=== PATIENT | female | born 2005 | race Caucasian/White ===

== ENCOUNTER 2025-02-11 19:52 | Emergency (ER) | payer OTHER, SELFPAY ==
--- NOTE | ~2025-02-11 | XR_ITS ---
CLINICAL HISTORY: CP 2 view chest x-ray Comparison: None provided Findings: No consolidation, pneumothorax, or pleural effusion. Cardiac silhouette and mediastinal contours are within normal limits. No acute fracture. IMPRESSION: No consolidation. This document has been electronically signed by: Juvenal Isbell MD on 02/11/2025 21:31:29
--- NOTE | 2025-02-11 19:53 | ECG_ITS ---
Test Reason : chest pain Blood Pressure : */* mmHG Vent. Rate : 92 BPM Atrial Rate : 92 BPM P-R Int : 132 ms QRS Dur : 72 ms QT Int : 354 ms P-R-T Axes : 43 44 17 degrees QTcB Int : 437 ms Normal sinus rhythm Normal ECG When compared with ECG of 11-Apr-2017 19:25, No significant changes seen Referred By: Generic ED Physician Electronically Signed By: Matias Dominguez
[2025-02-11 20:03] VITALS: BP 142/93; PULSE 90; RESP 20; TEMP 36.9; O2SAT 100; BMI 34.7
--- NOTE | 2025-02-11 20:05 | ED_ITS ---
HPI - Chest Pain General Chief Complaint: Chest Pain Stated Complaint: Chest pain, lt arm numbness Time Seen by Provider: 02/11/25 22:34 Source: patient Mode of arrival: ambulatory Limitations: no limitations History of Present Illness ED Provider: Dr. Kirsten Haider HPI narrative: patient comes to the emergency room complaining of left-sided chest pain for 2 weeks. Patient states that sometimes she takes naproxen for pain. Patient reports left arm tingling for 24-48 hours. At this time, slightly getting better. Denies any shortness of breath, denies any nausea or vomiting. Denies any trauma, denies any new exercises or heavy lifting. Related Data Allergies Allergy/AdvReac Type Severity Reaction Status Date / Time nut - unspecified (nut) Allergy Severe RASH Verified 02/11/25 20:06 soy (SOY) Allergy Intermediate RASH Verified 02/11/25 20:06 shellfish derived (SHELLFISH Allergy Unknown TESTED Verified 02/11/25 20:06 DERIVED) POSITIVE FRUIT Allergy Intermediate RASH Uncoded 02/11/25 20:06 Review of Systems 2 Review of Systems: Constitutional : No Weight loss, No Fever, No Chills, No Night Sweats, No Fatigue, No Malaise ENT/Mouth : No Hearing loss, No Ear Pain, No Nasal Congestion, No Sinus Pain, No Hoarseness, No sore throat, No Rhinorrhea, No Swallowing Difficulty Eyes: No Eye Pain, No Swelling, No Redness, No Foreign Body, No Discharge, No Vision Changes Cardiovascular : Complaining of chest pain for 2 weeks radiating towards the left arm, No SOB, No Dyspnea on Exertion, No Orthopnea, No Edema, No Palpitations Respiratory : No Cough, No Sputum, No Wheezing, No Smoke Exposure, No Dyspnea Gastrointestinal : No Nausea, No Vomiting, No Diarrhea, No Constipation, No abdominal Pain, No Hematochezia, No Melena Genitourinary : no irregular bleeding, No Dysuria, No Urinary Frequency, No Hematuria, No Urinary Incontinence, No Urgency, No Flank Pain, No Urinary Flow Changes, No Hesitancy Musculoskeletal : No joint pain, No Myalgias, No Joint Swelling Skin : No Skin Lesions, No rash Neuro : No Weakness, No Numbness, No Paresthesias, No Loss of Consciousness, No Dizziness, No Headache Psych : No Anxiety/Panic, No Depression, No SI/HI/AH/VH, No Social Issues, Heme/Lymph: No Bruising, No Bleeding,No Lymphadenopathy Endocrine : No Polyuria, No Polydipsia, No Temperature Intolerance [facility] Social History Social History Advance Directives: No Advance Directives Information Provided: No Physical Exam 2 Vital Signs: Vital Signs: Last Vital Signs Temp 98.4 F 02/11/25 20:03 Pulse 90 02/11/25 20:03 Resp 20 02/11/25 20:03 BP 142/93 H 02/11/25 20:03 Pulse Ox 100 02/11/25 20:03 O2 Del Method Room Air 02/11/25 20:03 BMI result Body Mass Index 34.7 Const: Other: Appearance: Alert. Oriented X3. No acute distress. Eyes: Pupils equal, round and reactive to light. ENT: Pharynx normal. Neck: Normal inspection. Neck supple. No lymph nodes noted. No crepitus CVS: Normal heart rate and rhythm. Pulses normal. Normal S1 and S2. Bedside ultrasound shows good contractility, no pericardial effusion Respiratory: No respiratory distress. Breath sounds normal. No Wheezing. No rales Abdomen: Soft and nontender. No rigidity. No distention. Skin: Skin warm and dry. Normal skin color. Normal skin turgor. Extremities: No lower extremity edema. No Lacerations. No Rash Neuro: Oriented X 3. No motor deficit. No sensory deficit. Moving all extremities. No slurred speech. CN 2 through 12 grossly intact Psych: calm, cooperative, normal affect Course Course Course Narrative: This is an RME: Additional HPI, ROS, PE not included below will be deferred to primary provider. 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 Reports that she has been taking naproxen. Also reporting left arm tingling and numbness. Reports FMHx of cardiac issues - ?cousin had a pacemaker at age 18. No recent travel, surgeries or hospitalizations. Not on OCPs. Plan: Labs, EKG, cxr, further ER eval needed Medical Decision Making Medical Decision Making MDM Narrative: my interpretation of EKG: Normal sinus rhythm, heart rate 92, no ST segment depression or elevation, no T-wave inversion, QTC 437 my interpretation of labs: no significant abnormality in patient's hematology, white blood cell count slightly elevated 11.8, chemistry within normal limits, magnesium 2.9, troponin 2.7, hCG negative. Serology negative chest x-ray does not show any acute abnormality. I discussed with the patient that she may have costochondritis, versus pleurisy, versus musculoskeletal chest pain, cardiac etiology less likely. Differential Diagnosis Differential Diagnoses: The differential diagnosis associated with the presentation includes ( As above) Lab Data MDM Lab Attestation statement: I reviewed the patient's lab results. 02/11/25 20:32 02/11/25 20:32 Labs: Lab Results 02/11/25 02/11/25 Range/Units 20:31 20:32 WBC 11.8 H (4.8-10.8) X10*3/uL RBC 5.18 (4.20-5.50) X10*6/uL Hgb 15.4 (12.0-16.0) g/dl Hct 42.1 (37.0-47.0) % MCV 81.3 (80.0-98.0) fL MCH 29.7 (27.0-33.0) pg MCHC 36.6 H (31.0-35.0) g/dl RDW 12.6 (11.0-16.0) % Plt Count 309 (160-400) X10*3/uL MPV 8.9 L (9.4-12.3) fL Immature Gran % (Auto) 0.3 (0.0-0.4) % Neut % (Auto) 61.5 (45-73) % Lymph % (Auto) 31.0 (20-40) % Wilkes % (Auto) 5.4 (2-11) % Eos % (Auto) 1.4 (0-4) % Baso % (Auto) 0.4 (0-2) % Lymph # (Auto) 3.7 (1.2-4.9) X10*3/uL Wilkes # (Auto) 0.6 (0.1-1.2) X10*3/uL Eos # (Auto) 0.2 (0.0-0.4) X10*3/uL Baso # (Auto) 0.1 (0.0-0.2) X10*3/uL Abs Immat Gran (auto) 0.03 (0.00-0.03) X10*3/uL Absolute Neuts (auto) 7.2 (2.0-8.3) x10*3/uL Absolute Nucleated RBC 0.000 (0.0-0.012) X10*3/uL Nucleated RBC % (auto) 0.0 (0.0-0.2) /100WBC Sodium 140 (135-145) mmol/L Potassium 4.1 (3.3-5.1) mmol/L Chloride 105 (96-108) mmol/L Carbon Dioxide 25 (22-29) mmol/L Anion Gap 14 (12-20) BUN 12 (9-16) mg/dL Creatinine 0.72 (0.5-1.4) mg/dL Estim Creat Clear Calc 146.7 Estimated GFR > 60 Random Glucose 92 (60-115) mg/dL Calcium 9.5 (8.4-10.2) mg/dL Magnesium 2.1 (1.6-2.6) mg/dL Total Bilirubin 0.4 (0.0-1.0) mg/dL Direct Bilirubin 0.1 (0.0-0.5) mg/dL AST 34 H (5-31) U/L ALT 44 H (0-31) U/L Alkaline Phosphatase 53 (39-117) U/L Troponin I High Sens < 2.7 (<3.5-17.0) ng/L Total Protein 7.7 (6.5-8.0) g/dL Albumin 5.1 H (3.5-5.0) g/dL Beta HCG, Quant < 2 mIU/mL Influenza Type A (PCR) NEGATIVE (Negative) Influenza Type B (PCR) NEGATIVE (Negative) RSV RNA Qual (PCR) NEGATIVE (Negative) SARS-CoV-2 RNA (RT-PCR) NEGATIVE (Negative) Independent Interpretation I performed an independent interpretation of an: EKG and Plain X-Ray Radiology Impression Discussion of test interpretation with radiology: I have reviewed the radiologist's reading. Radiologist Impression: No consolidation, pneumothorax, or pleural effusion. Cardiac silhouette and mediastinal contours are within normal limits. No acute fracture. IMPRESSION: No consolidation. Discharge Plan Discharge Clinical Impression: Atypical chest pain Patient Disposition: Home, Self-Care Instructions: Chest Pain (ED), Noncardiac Chest Pain (ED) Print Language: Upper Sorbian
[2025-02-11 20:38] LABS: MANUAL DIFF FLAG NO
[2025-02-11 20:40] LABS: Hematocrit 42.1 % (37.0-47.0); Hemoglobin 15.4 g/dl (12.0-16.0); Imm Gran Abs Auto 0.03 X10*3/uL (0.00-0.03); Imm Gran Pct Auto 0.3 % (0.0-0.4); Lymphocytes Absolute Auto 3.7 X10*3/uL (1.2-4.9); Mean Corpuscular HGB Conc 36.6 g/dl (31.0-35.0); Mean Corpuscular Hemoglobin 29.7 pg (27.0-33.0); Mean Corpuscular Volume 81.3 fL (80.0-98.0); NRBC Abs Auto 0.000 X10*3/uL (0.0-0.012); NRBC Pct Auto 0.0 /100WBC (0.0-0.2); Platelet Count 309 X10*3/uL (160-400); Red Blood Count 5.18 X10*6/uL (4.20-5.50); White Blood Count 11.8 X10*3/uL (4.8-10.8)
[2025-02-11 20:53] LABS: Alanine Aminotransferase 44 U/L (0-31); Albumin Level 5.1 g/dL (3.5-5.0); Alkaline Phosphatase 53 U/L (39-117); Anion Gap 14 (12-20); Aspartate Amino Transferase 34 U/L (5-31); Blood Urea Nitrogen 12 mg/dL (9-16); Calcium 9.5 mg/dL (8.4-10.2); Carbon Dioxide 25 mmol/L (22-29); Chloride 105 mmol/L (96-108); Creatinine Clr Calc Pharmacy 146.7; Estimated Glomerular Filt Rate > 60; Magnesium 2.1 mg/dL (1.6-2.6); Potassium 4.1 mmol/L (3.3-5.1); Sodium 140 mmol/L (135-145); Total Protein 7.7 g/dL (6.5-8.0)
[2025-02-11 21:05] LABS: Troponin-I High Sensitivity < 2.7 ng/L (<3.5-17.0)
[2025-02-11 21:15] LABS: Resp Syncy Virus RNA Qual PCR NEGATIVE (Negative); SARS COV2 PCR INHOUSE NEGATIVE (Negative)
[2025-02-11 22:49] VITALS: BP 124/78; PULSE 82; RESP 16; TEMP 36.5; O2SAT 95
[2025-02-11 23:47] VITALS: PULSE 71
[2025-02-11 23:49] VITALS: BP 124/78; PULSE 82; RESP 16; TEMP 36.5; O2SAT 95
== END 2025-02-11 23:50 | disposition home or self-care (01) ==
PROVIDERS: Physician Assistant Medical; Emergency Provider Emergency Medicine; PCP Family Medicine
DX: R07.89 Other chest pain (principal); Z79.899 Other long term (current) drug therapy; Z03.818 Encounter for observation for suspected exposure to other biological agents ruled out
CPT/HCPCS: 36415; 71046; 80048; 80076; 83735; 84484; 84702; 85025; 87637; 93005; 99283; 99285

== ENCOUNTER → 2025-02-11 19:53 | Outpatient (BNV) | payer OTHER, SELFPAY | PROVIDERS: Emergency Provider Emergency Medicine; PCP Family Medicine; Visit Provider Internal Medicine Cardiovascular Disease | DX: R07.89 Other chest pain (principal) | CPT/HCPCS: 93010 ==

== ENCOUNTER → 2025-02-11 20:08 | Outpatient (BNV) | payer OTHER, SELFPAY | PROVIDERS: Visit Provider Radiology Neuroradiology | DX: R07.9 Chest pain, unspecified (principal) | CPT/HCPCS: 71046 ==

== ENCOUNTER 2025-07-07 15:41 | Outpatient (AMB) | payer OTHER, SELFPAY ==
--- NOTE | 2025-07-07 15:49 | MHC.OFFVIS ---
Intake Visit Reasons: Migranes follow up Allergies nut - unspecified (nut) Allergy (Severe, Verified 02/11/25 20:06) RASH soy (SOY) Allergy (Intermediate, Verified 02/11/25 20:06) RASH shellfish derived (SHELLFISH DERIVED) Allergy (Unknown, Verified 02/11/25 20:06) TESTED POSITIVE FRUIT Allergy (Intermediate, Uncoded 02/11/25 20:06) RASH Medication List - Last Reconciled 07/07/25 by Lesley Hallman MD albuterol sulfate 90 mcg/actuation (Ventolin HFA) 1 puff inhalation TID ibuprofen 400 mg PO Q8H HPI Comments Details: 19 yr woman who is now getting almost daily DOMINGUEZ and taking 4-5 Advil daily. Ears are ringing , R>L. When she was last here she was getting DOMINGUEZ 2-3/ wk for an hour or so mostly in the afternoon. No triggers. Occasionally when sugar is low. Frontal or top of head. No other Sx with it. Gets sensitive to lights and noises. Takes Advil/ Tylenol. FH of migraines. Grades are better and almost made honor roll. She has learning difficulties, short attention and trouble recalling things. Her grades are now C's and sometimes D's in the last 2 years. She is seeing a counselor and therapist. Her evaluation has suggested an attention deficit disorder, as well as learning difficulties and she appears to learn best with visual cues. She also has a bad anxiety disorder and sometimes also feels sad. She has some presyncopal episodes with near faints when she gets up. She feels social anxieties in public and has to be with a self pay specialist. She gets along with her younger siblings, one brother has autism. Had an MRI of brain . She was supposed to get an LP to measure CSF pressure but it was never done. [facility], [facility] Medical History (Updated 07/07/25 @ 15:52 by Lesley Hallman MD) Insomnia Migraine Pseudotumor cerebri Social History Alcohol intake: never Substance Use Type: Marijuana Review of Systems Const Details: ?Sleep:? Difficulty getting to sleepadmits.? Difficulty maintaining sleepadmits.? Urge to move legsdenies.? Teeth grindingdenies.? Shouting or Kicking during sleepdenies.? Abnormal behavior during sleepdenies.? Excessive sleepdenies.? Snoringadmits.? Daytime sleepinessdenies. ???General/Constitutional:? Change in appetitedenies.? Chillsdenies.? Fatigueadmits.? Feverdenies.? Weight gaindenies.? Weight lossdenies. ???Ophthalmologic:? Blurred visiondenies.? Diminished visual acuitydenies. ???ENT:? Stuffinessadmits.? Decreased hearingdenies.? Dry mouthdenies.? Ear paindenies.? Nosebleeddenies.? Ringing in the earsadmits.? Sinus paindenies.? Sore throatdenies.? Swollen glandsdenies. ???Endocrine:? Cold intolerancedenies.? Excessive thirstdenies.? Frequent urinationdenies.? Heat intolerancedenies. ???Respiratory:? Shortness of breathdenies.? Chest paindenies.? Coughdenies. ???Breast:? Breast lumpdenies.? Nipple dischargedenies. ???Cardiovascular:? Chest pain at restdenies.? Chest pain with exertiondenies.? Claudicationdenies.? Dizzinessdenies.? Fluid accumulation in the legsdenies.? Irregular heartbeatdenies.? Palpitationsdenies. ???Gastrointestinal:? Abdominal paindenies.? Constipationdenies.? Diarrheadenies.? Difficulty swallowingdenies.? Heartburndenies.? Nauseadenies.? Rectal bleedingdenies. ???Hematology:? Easy bruisingdenies.? Prolonged bleedingdenies. ???Genitourinary:? Frequent urinationdenies.? Urgencydenies.? Incontinencedenies.? Erectile Dysfunctiondenies. ???Musculoskeletal:? Neck painadmits.? Back paindenies.? Muscle achesadmits.? Painful jointsdenies.? Sciaticadenies.? Weaknessdenies. ???Podiatric:? Difficulty walkingdenies.? Foot numbnessdenies. ???Neurologic:? Difficulty swallowingdenies.? Balance difficultydenies.? Coordinationnormal.? Difficulty speakingdenies.? Dizzinessadmits.? Faintingdenies.? Gait abnormalitydenies.? Headacheadmits.? Loss of strengthdenies.? Loss of use of extremitydenies.? Low back paindenies.? Memory lossadmits.? Seizuresdenies.? Ticsdenies.? Tingling/Numbnessdenies.? Transient loss of visiondenies.? Tremoradmits. ???Psychiatric:? Anxietyadmits.? Auditory/visual hallucinationsadmits.? Delusionsadmits.? Depressed moodadmits.? Stressorsadmits.? Substance abusedenies.? Suicidal thoughtsdenies. Physical Exam Neuro Other: Neurological: Abnormal neurological findings:??blurred nasal disc margins. NO PLUG AND MOLD FINISHER. No papilledema.?Mental Status:??alert and oriented X 3,?Normal attention, orientation, memory and affect.?Cranial Nerves:??Pupils are equal, round and reactive to light. Fundoscopy shows normal disc bilaterally. External occular muscles are intact. Visual madera are full, no ptosis. Face is symmetrical, no facial weakness or droop. Facial sensations are normal. Tongue protrudes in midline. Palate elevates symmetrically. Shoulder shrugging is normal..?Motor Examination:??Normal muscle tone, bulk and strength,?No atrophy or fasciculations,?No drift of the extended upper extremities,?Deep tendon reflexes are 2+?,?Plantars are flexor?.?Straight Leg Raising:??90 degrees.?Sensory Exam:??Normal light touch, temperature, pinprick, vibration and joint-position sensations?,?Rhomberg sign is absent.?Coordination:??no ataxia,?no titubation,?sxxdvx-su-twle, jduw-uhzk-hzzc test and rapid alternating movements were normal.?Gait Exam:??Within normal limits.?Cerebellar Signs:??Pbhzxx-hc-pgyc and bruf-ut-ltav is normal,?no dysdiadochokinesia?.?Extrapyramidal System:??No tremor, rigidity with normal facial expressions,?No bradykinesia, no bradyphrenia. Normal arm swing and posture. No propulsion or retropulsion.?Speech:??Normal,?no dysphasia or dysarthria..? Mini Mental Status Exam: Level of Consciousness:??Alert.?Orientation:??Knows correct year, month, date, day and season,?Knows correct city, county and state. Knows correct location and floor.?Registration:??Able to register 3 objects.?Attention:??Serial 7's performed accurately.?Recall:??Able to recall 3 out of 3 objects.?Language:??Normal spontaneous speech, fluency, repetition,naming, comprehension, reading and writing.?Total Score:??30/30.? General Examination: GENERAL APPEARANCE:??normal,?in no acute distress.?HEAD:??normocephalic,?atraumatic.?EYES:??sclera non-icteric,?conjunctiva clear.?EARS:??auditory canal clear,?tympanic membrane intact, clear.?NOSE:??no lesions.?ORAL CAVITY:??gums normal,?mucosa moist,?no lesions.?THROAT:??clear.?NECK/THYROID:??no cervical lymphadenopathy,?thyroid normal,?neck supple, full range of motion,?no carotid bruit.?SKIN:??no rashes,?no significant birthmarks.?HEART:??S1, S2 normal,?no murmurs.?LUNGS:??clear anteriorly and posteriorly.?CHEST:??no gross rib deformity,?clear to auscultation.?BACK:??normal exam of spine.?EXTREMITIES:??no edema.?PERIPHERAL PULSES:??normal.?PSYCH:??alert, oriented,?cognitive function intact,?cooperative with exam.? Assessment & Plan Assessment & Plan (1) Pseudotumor cerebri: Comment: 06/03/19 EEG- WNL 06/06/[address] scan showed a pineal cyst. Code(s): G93.2 - Benign intracranial hypertension Category: Medical (2) Migraine: Code(s): G43.909 - Migraine, unspecified, not intractable, without status migrainosus Category: Medical (3) ADD (attention deficit disorder): Code(s): F98.8 - Other specified behavioral and emotional disorders with onset usually occurring in childhood and adolescence Category: Medical Plan LP to measure CSF pressure. Start prophylaxis with amitriptyline and Topiramate. Reduce OTC meds to no more than 2 days a week Orders: Orders FL guided lumbar puncture LP Today G93.2 - Benign intracranial hypertension Medications: New amitriptyline 25 mg PO BEDTIME 30 tabs 5RF topiramate XR 50 mg PO DAILY 30 caps 1RF Coding Level of Care Code Est Pt Level 4 (68137) Diagnoses Pseudotumor cerebri G93.2 Migraine G43.909 ADD (attention deficit disorder) F98.8
--- OUTSIDE RECORDS SUMMARY | 2025-07-07 17:08 | XMS_ITS ---
Author Name [facility] Organization Unknown Care Team Organization Name Specialty Phone Email Start Date End Da te [facility]I [email or web address]/11/2022 4 [facility] Ladi Medina Primary Care 06/13/2022 4
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
--- OUTSIDE RECORDS SUMMARY | 2025-07-07 17:08 | XMS_ITS | Clinical Summary ---
Author Organization [facility] Address [address] [place] [address] Care Team Providers Care Sammying Machine Operator Name Role Phone Risa Eaton MD Primary Care Provider [phone] Source Comments Please note that some or all of the patient's information could have additional privacy protections. State laws allow health care providers to render certain types of treatment to minors without parental consent. Please do not assume that this information can be shared solely by obtaining just the consent of the patient's parent/guardian. Please determine if all or part of the patient's care was rendered without parent/guardian involvement. And, if so, obtain the minor's consent prior to disclosure.[facility] Allergies Active Allergy Reactions Criticality Noted Date Comments Cat Dander 01/08/2007 Dog Dander 01/08/2007 Mite-Dermatophagoides Farinae, Standardized Low 06/18/2008 Other reaction(s): Runny Nose/Rhinitis Fruit Extracts 03/29/2020 [place]-contact rxn dizzy, hives, swelling, throat closing [place]-throat closing, throat itching Blueberry-throat itching Grass Pollen-January Grass Standard 01/21/2018 Horse Dander 03/29/2011 Hejwyaic-Fhgipj-Ttdir Extract 01/21/2018 Peanut 08/18/2008 Other reaction(s): Diagnosed by allergy testing Fish Containing Products 03/29/2020 Fish-throat closing Shellfish-hives and itching Seasonal 12/12/2010 Shellfish Containing Products 01/21/2018 Tree Nut 01/21/2018 Medications albuterol (PROVENTIL HFA;VENTOLIN HFA) 90 mcg/actuation inhaler Inhale into the lungs 04/09/2020 Active buPROPion (WELLBUTRIN SR) 100 MG 12 hr tablet Active cetirizine (ZYRTEC) 10 MG tablet Take by mouth 04/09/2020 Active cholecalciferol, vitamin D3, (VITAMIN D3) 50 mcg (2,000 unit) capsule Take by mouth 04/09/2020 Active cloNIDine HCL (CATAPRES) 0.1 MG tablet Active EPINEPHrine (EPIPEN) 0.3 mg/0.3 mL injection Inject into the muscle 04/09/2020 Active etonogestreL (NEXPLANON) 68 mg Inject into the skin 09/16/2019 Active fluticasone furoate (ARNUITY ELLIPTA) 100 mcg/actuation Disk with Device INHALE 1 PUFF BY MOUTH INTO THE LUNGS ONCE DAILY 11/24/2019 Active guanFACINE (TENEX) 1 MG tablet Take by mouth 02/27/2020 Active montelukast (SINGULAIR) 10 mg tablet Take by mouth 04/09/2020 Active QUEtiapine (SEROQUEL) 25 MG tablet Take by mouth 02/27/2020 Active Active Problems No known active problems Family History Medical History Relation Name Comments Arthritis Father Arthritis Mother Irritable bowel syndrome Mother Thyroid disease Mother Arthritis Other maternal Autoimmune disease Other maternal Arthritis Paternal Grandfather Inflammatory bowel disease Neg Hx Lupus Neg Hx Relation Name Status Comments Father Mother Other maternal Paternal Grandfather Social History Tobacco Use Types Packs/Day Years Used Date Smoking Tobacco: Never Smokeless Tobacco: Never Comments:mom smokes outside Other Needs Answer Date Recorded Anything else about your child you'd like help w ith? Not on file 04/20/2023 Share good news about positive changes: Not on f ile 04/20/2023 Comments Unknown Sex and Gender Information Value Date Recorded Sex Assigned at Not on file Legal Sex Female 2:31 PM EDT Gender Identity Not on file Sexual Orientation Not on file Last Filed Vital Signs Vital Sign Reading Time Taken Comments Blood Pressure 106/79 07/08/2020 11:02 AM EST Pulse - - Temperature - - Respiratory Rate - - Oxygen Saturation - - Inhaled Oxygen Concentration - - Weight 89.6 kg (197 lb 8.5 oz) 07/08/2020 11:02 AM EST Height 165.4 cm (5' 5.12 ) 07/08/2020 11:[address] Body Mass Index 32.75 07/08/2020 11:02 AM EST Plan of Treatment Health Maintenance Due Date Last Done Comments DTaP/TDAP/TD VACCINES (1 - Tdap) 2011 ADOLESCENT HIV SCREENING 2017 COVID-19 Vaccine (2023-2 5 season) 2025 INFLUENZA (#1) 2025 NIRSEVIMAB VACCINES UNDER 8 MONTHS Aged Out No longer eligible based on patient's age to complete this topic Insurance [facility] [employer] PLAN Care Teams Sammying Machine Operator Relationship Specialty Start Date End Date Risa Eaton MD [address] [place] [address] PCP - General General Pediatrics 04/15/20
--- OUTSIDE RECORDS SUMMARY | 2025-07-07 17:08 | XMS_ITS | Clinical Summary ---
Author Organization [facility] Address [address] [place] [address] Phone Care Team Providers Care Police Shift Commander Name Role Phone Risa Eaton MD Primary Care Provider [phone] Cheryl Pichardo MD Unavailable [phone] Allergies Active Allergy Reactions Criticality Noted Date Comments Xysuwdhi-Ugzxkv-Sxalm Extract 2017 Grass Pollen-Sharita Grass Standard Peanut 01/21/2018 Tree Nut 01/21/2018 Shellfish Containing Products 2017 Medications cetirizine (ZYRTEC) 10 MG tablet Active cloNIDine HCl (CATAPRES) 0.1 MG tablet Active buPROPion (WELLBUTRIN SR) 100 MG SR 12 hr tablet Active Active Problems No known active problems Social History Tobacco Use Types Packs/Day Years Used Date Smoking Tobacco: Never Assessed Education Answer Date Recorded Are you interested in more education? Not on german e 12/01/2022 Are you concerned about learning? Not on file 12/01/2022 No 12/01/2022 No 12/01/2022 Digital Access Answer Date Recorded No 01/01/2023 No 01/01/2023 No 01/01/2023 Reliable internet access at home? Not on file 01/01/2023 Device with a working camera? Not on file Comments Unknown Sex and Gender Information Value Date Recorded Sex Assigned at Not on file Legal Sex Female 4:46 PM EDT Gender Identity Not on file Sexual Orientation Not on file Last Filed Vital Signs Vital Sign Reading Time Taken Comments Blood Pressure 119/64 04/10/2019 2:30 PM EDT Pulse 84 04/10/2019 2:30 PM EDT Temperature 36.8 C (98.2 F) 04/10/2019 2:30 PM EDT Respiratory Rate 16 04/10/2019 4:30 PM EDT Oxygen Saturation 98% 04/10/2019 2:30 PM EDT Inhaled Oxygen Concentration - - Weight 72.6 kg (160 lb) 04/10/2019 10:48 AM EDT Height 165.1 cm (5' 5 ) 04/10/2019 10:48 AM EDT Body Mass Index 26.63 04/10/2019 10:48 AM EDT Plan of Treatment Not on file Medical Devices Not on file Insurance [employer] A[employer] [facility] ALLANCE ACO Care Teams Police Shift Commander Relationship Specialty Start Date End Date Risa Eaton MD [address] [place] [address] PCP - General Pediatrics 01/21/18 Cheryl Pichardo MD [address] [place] [address] [email or web address] 04/10/19 Additional Source Comments The information contained in this document represents components of the legal health record. It is not the complete legal health record.[facility]
== END 2025-07-07 16:08 | disposition home or self-care (01) ==
LOC: HO.HSM 15:42
PROVIDERS: PCP Family Medicine; Visit Provider Psychiatry & Neurology Neurology
DX: G93.2 Benign intracranial hypertension (principal); G43.909 Migraine, unspecified, not intractable, without status migrainosus; F98.8 Other specified behavioral and emotional disorders with onset usually occurring in childhood and adolescence
CPT/HCPCS: 99214

== ENCOUNTER → 2025-07-07 15:41 | Outpatient (BNVA) | payer OTHER, SELFPAY | PROVIDERS: PCP Family Medicine; Visit Provider Psychiatry & Neurology Neurology | DX: G93.2 Benign intracranial hypertension (principal); G43.909 Migraine, unspecified, not intractable, without status migrainosus; F98.8 Other specified behavioral and emotional disorders with onset usually occurring in childhood and adolescence | CPT/HCPCS: 99212 ==

== ENCOUNTER 2025-07-31 09:18 | Day surgery (SDC) | payer OTHER, SELFPAY ==
--- OUTSIDE RECORDS SUMMARY | 2025-07-10 17:50 | XMS_ITS | Encounter Summary ---
Author Organization [facility] Prior to 06/06/2024 Address [address] [place] [address] Care Team Providers Care Solar Energy Systems Engineer Name Role Phone Risa Eaton MD Primary Care Provider Unavailab le Ladi Medina MD Primary Care Provider Jayson Cadet MD Primary Care Provider + Melvin Rodas MD Unavailable Riya Vega PA-C Unavailable [phone] Garret Clements PA-C Unavailable Nighat Mcgee MD Unavailable [phone] Encounter Details Date Type Department Care Team Description 11/09/2010 Poultry Farm Manager Report Medical Records [address] [place] [address] Rocael Bond MD Social History Tobacco Use Types Packs/Day Years Used Date Smoking Tobacco: Never Smokeless Tobacco: Never Comments:step dad's family Alcohol Use Standard Drinks/Week Comments Not Asked 0 (1 standard drink = 0.6 oz pur e alcohol) Sex Assigned at Date Recorded Not on file Job Start Date Occupation Industry Not on file Not on file Not on file documented as of this encounter Plan of Treatment Not on file documented as of this encounter Visit Diagnoses Not on filedocumented in this encounter Care Teams Solar Energy Systems Engineer Relationship Specialty Start Date End Date Risa Eaton MD PCP - General 06/25/06 11/09/21 Ladi Medina MD [address] [place] [address] PCP - General Pediatrics 11/10/21 08/09/22 Jayson Cadet MD [address] [place] [address] PCP - General Internal Medicine 08/10/22 Melvin Rodas MD [address] [place] [address] Specialist Cardiovascular Disease 01/08/23 Riya Vega PA-C [address] [place] [address] Specialist Neurosurgery 05/12/24 Garret Clements PA-C [address] [address] Specialist Neurosurgery 05/12/24 Nighat Mcgee MD [address] [address] Surgeon Neurosurgery 05/12/24 documented as of this encounter
--- OUTSIDE RECORDS SUMMARY | 2025-07-10 17:50 | XMS_ITS | Encounter Summary ---
Author Organization [facility] Prior to 06/06/2024 Address [address] [place] [address] Care Team Providers Care Assistant Grocery Store Manager Name Role Phone Risa Eaton MD Primary Care Provider Unavailab Ladi Banda MD Primary Care Provider [phone] Jayson Cadet MD Primary Care Provider + Melvin Rodas MD Unavailable Riya Vega PA-C Unavailable Garret Clements PA-C Unavailable Nighat Mcgee MD Unavailable [phone] Reason for Visit * Reason Comments E-prescribe Rx Request Encounter Details Date Type Department Care Team Description 04/06/2016 Refill Pediatrics - [address] [address] Nikki Veras NP E-prescribe Rx Request Social History Tobacco Use Types Packs/Day Years Used Date Smoking Tobacco: Never Smokeless Tobacco: Never Comments:mom smokes outside Alcohol Use Standard Drinks/Week Comments Not Asked 0 (1 standard drink = 0.6 oz pur e alcohol) Sex Assigned at Date Recorded Not on file Job Start Date Occupation Industry Not on file Not on file Not on file documented as of this encounter Miscellaneous Notes * Telephone Encounter - Nikki Hunt NP - 04/06/2016 8:53 AM EDT Done * Telephone Encounter - Emma Gipsonsonnymohini - 04/06/2016 8:39 AM EDT When was patients last PE/WCC? 04/04/16 When is patients next PE/WCC scheduled? W.list Risa Eaton RX REQUEST WHEN MED IS ON THE LIST: All of the medications requested were on the CURRENT MEDS list Did you check the Pharmacy information above?: YES Indicate how soon the patient needs the script: OK FOR NEXT DAY Patient would like script to be: E-PRESCRIBED/FAXED TO PHARMACY Is the doctor here today?: YES Can the message wait until the doctor returns?: YES Has the patient been told that the prescription will not be filled until the end of the day? NO Risa Eaton Payor: [place] / Plan: [place] [employer] [facility] $0 BARTLEY / Product Type: HMO Ikf-gsq-[id number] documented in this encounter Plan of Treatment Not on file documented as of this encounter Visit Diagnoses Not on filedocumented in this encounter Care Teams Assistant Grocery Store Manager Relationship Specialty Start Date End Date Risa Eaton MD PCP - General 06/25/06 11/09/21 Ladi Medina MD [address] [place] [address] PCP - General Pediatrics 11/10/21 08/09/22 Jayson Cadet MD [address] [place] [address] PCP - General Internal Medicine 08/10/22 Melvin Rodas MD [address] [place] [address] Specialist Cardiovascular Disease 01/08/23 Riya Vega PA-C [address] [place] [address] [place] [address] Specialist Neurosurgery 05/12/24 Garret Clements PA-C [address] [facility] [address] [place] [address] Specialist Neurosurgery 05/12/24 Nighat Mcgee MD [address] [address] Surgeon Neurosurgery 05/12/24 documented as of this encounter
--- OUTSIDE RECORDS SUMMARY | 2025-07-10 17:50 | XMS_ITS | Encounter Summary ---
Author Organization [facility] Prior to 06/06/2024 Address [address] [place] [address] Care Team Providers Care Button Machine Operator Name Role Phone Risa Eaton MD Primary Care Provider Unavailab le Ladi Medina MD Primary Care Provider Jayson Cadet MD Primary Care Provider + Melvin Rodas MD Unavailable Riya Vega PA-C Unavailable Garret Clements PA-C Unavailable Nighat Mcgee MD Unavailable [phone] Encounter Details Date Type Department Care Team Description 10/28/2014 Insurance Inspector Report Medical Records [address] [place] [address] Lori Leo Social History Tobacco Use Types Packs/Day Years Used Date Smoking Tobacco: Never Smokeless Tobacco: Never Comments:step dad's /mom smo ke outside Alcohol Use Standard Drinks/Week Comments Not [...] on filedocumented in this encounter Care Teams Button Machine Operator Relationship Specialty Start Date End Date Risa Eaton MD PCP - General 06/25/06 11/09/21 Ladi Medina MD [address] [place] [address] PCP - General Pediatrics 11/10/21 08/09/22 Jayson Cadet MD [address] [place] [address] PCP - General Internal Medicine 08/10/22 Melvin Rodas MD [address] [place] [address] Specialist Cardiovascular Disease 01/08/23 Riya Vega PA-C [address] [place] [address] Specialist Neurosurgery 05/12/24 Garret Clements PA-C [address] [address] Specialist Neurosurgery 05/12/24 Nighat Mcgee MD [address] [address] Surgeon Neurosurgery 05/12/24 documented as of this encounter
--- OUTSIDE RECORDS SUMMARY | 2025-07-10 17:50 | XMS_ITS | Encounter Summary ---
Author Organization [facility] Prior to 06/06/2024 Address [address] [place] [address] Care Team Providers Care Monitor Tech Name Role Phone Risa Eaton MD Primary Care Provider Unavailab Ladi Banda MD Primary Care Provider Jayson Cadet MD Primary Care Provider + Melvin Rodas MD Unavailable Riya Vega PA-C Unavailable [phone] Garret Clements PA-C Unavailable [phone] Nighat Mcgee MD Unavailable [phone] Encounter Details Date Type Department Care Team Description 11/22/2015 Release of Information Medical Records [address] [place] [address] Abstract, Provider Social History Tobacco Use Types Packs/Day Years [...] on filedocumented in this encounter Care Teams Monitor Tech Relationship Specialty Start Date End Date Risa Eaton MD PCP - General 06/25/06 11/09/21 Ladi Medina MD [address] [place] [address] PCP - General Pediatrics 11/10/21 08/09/22 Jayson Cadet MD [address] [place] [address] PCP - General Internal Medicine 08/10/22 Melvin Rodas MD [address] [place] [address] Specialist Cardiovascular Disease 01/08/23 Riya Vega PA-C [address] [place] [address] Specialist Neurosurgery 05/12/24 Garret Clements PA-C [address] [place] [address] Specialist Neurosurgery 05/12/24 Nighat Mcgee MD [address] [address] Surgeon Neurosurgery 05/12/24 documented as of this encounter
--- OUTSIDE RECORDS SUMMARY | 2025-07-10 17:50 | XMS_ITS | Clinical Summary ---
Author Organization [facility] Address [address] [place] [address] Phone Care Team Providers Care Buffet Attendant Name Role Phone Risa Eaton MD Primary Care Provider [phone] Cheryl Pichardo MD Unavailable [phone] Allergies Active Allergy Reactions Criticality Noted Date Comments Wupcwlaq-Sykama-Wmzfa Extract 2017 Grass Pollen-Sharita Grass Standard Peanut [...] file Medical Devices Not on file Insurance [employer] ACO [employer] ACO [facility] ALLANCE ACO Care Teams Buffet Attendant Relationship Specialty Start Date End Date Risa Eaton MD [address] [place] [address] PCP - General Pediatrics 01/21/18 Cheryl Pichardo MD [address] [place] [address] [email or web address] 04/10/19 Additional Source Comments The information contained in this document represents components of the legal health record. It is not the complete legal health record.[facility]
--- OUTSIDE RECORDS SUMMARY | 2025-07-10 17:50 | XMS_ITS | Encounter Summary ---
Author Organization [facility] Prior to 06/06/2024 Address [address] [place] [address] Care Team Providers Care Mmi Teacher Name Role Phone Jayson Cadet MD Primary Care Provider + Melvin Rodas MD Unavailable Riya Vega PA-C Unavailable Garret Clements PA-C Unavailable Nighat Mcgee MD Unavailable [phone] Encounter Details Date Type Department Care Team Description 03/13/2023 Telephone [facility] [address] [place] [address] [phone] Ladi Medina MD [address] [place] [address] [phone] Social History Tobacco Use Types Packs/Day Years Used Date Smoking Tobacco: Never Smokeless Tobacco: Former Snuff Comments:mom smokes outside Alcohol Use Standard Drinks/Week Comments No 0 (1 standard drink = 0.6 oz pur e alcohol) Sex Assigned at Date Recorded Not on file Job Start Date Occupation Industry Not on file Not on file Not on file COVID-19 Exposure Response Date Recorded In the last 10 days, have yo u been in contact with someone who was confirmed or suspected to have Coronavirus/COVID-19? No / Unsure 03/12/2023 1:44 PM EDT documented as of this encounter Plan of Treatment Not on file documented as of this encounter Visit Diagnoses Not on filedocumented in this encounter Care Teams Mmi Teacher Relationship Specialty Start Date End Date Jayson Cadet MD [address] [place] [address] PCP - General Internal Medicine 08/10/22 Melvin Rodas MD [address] [place] [address] Specialist Cardiovascular Disease 01/08/23 Riya Vega PA-C [address] [address] Specialist Neurosurgery 05/12/24 Garret Clements PA-C [address] [address] Specialist Neurosurgery 05/12/24 Nighat Mcgee MD [address] [address] Surgeon Neurosurgery 05/12/24 documented as of this encounter
--- OUTSIDE RECORDS SUMMARY | 2025-07-10 17:50 | XMS_ITS | Encounter Summary ---
Author Organization [facility] Prior to 06/06/2024 Address [address] [place] [address] Care Team Providers Care Plastic Jig And Fixture Builder Name Role Phone Risa Eaton MD Primary Care Provider Unavailab Ladi Banda MD Primary Care Provider [phone] Jayson Cadet MD Primary Care Provider + Melvin Rodas MD Unavailable Riya Vega PA-C Unavailable Garret Clements PA-C Unavailable [phone] Nighat Mcgee MD Unavailable [phone] Encounter Details Date Type Department Care Team Description 03/04/2015 Turbine Engineer Report Medical Records [address] [place] [address] Lori Leo Social History Tobacco Use Types [...] on filedocumented in this encounter Care Teams Plastic Jig And Fixture Builder Relationship Specialty Start Date End Date Risa Eaton MD PCP - General 06/25/06 11/09/21 Ladi Medina MD [address] [place] [address] PCP - General Pediatrics 11/10/21 08/09/22 Jayson Cadet MD [address] [place] [address] PCP - General Internal Medicine 08/10/22 Melvin Rodas MD [address] [place] [address] Specialist Cardiovascular Disease 01/08/23 Riya Vega PA-C [address] [place] [address] Specialist Neurosurgery 05/12/24 Garret Clements PA-C [address] [address] Specialist Neurosurgery 05/12/24 Nighat Mcgee MD [address] [address] Surgeon Neurosurgery 05/12/24 documented as of this encounter
--- OUTSIDE RECORDS SUMMARY | 2025-07-10 17:50 | XMS_ITS | Encounter Summary ---
Author Organization [facility] Prior to 06/06/2024 Address [address] [place] [address] Care Team Providers Care Production Repairer Name Role Phone Risa Eaton MD Primary Care Provider Unavailab le Ladi Medina MD Primary Care Provider [phone] Jayson Cadet MD Primary Care Provider + Melvin Rodas MD Unavailable Riya Vega PA-C Unavailable [phone] Garret Clements PA-C Unavailable Nighat Mcgee MD Unavailable [phone] Encounter Details Date Type Department Care Team Description 01/12/2011 Java Developer Architect Report Medical Records [address] [place] [address] Kelsie Henderson MD Social History Tobacco Use Types Packs/Day [...] on filedocumented in this encounter Care Teams Production Repairer Relationship Specialty Start Date End Date Risa Eaton MD PCP - General 06/25/06 11/09/21 Ladi Medina MD [address] [place] [address] PCP - General Pediatrics 11/10/21 08/09/22 Jayson Cadet MD [address] [place] [address] PCP - General Internal Medicine 08/10/22 Melvin Rodas MD [address] [place] [address] Specialist Cardiovascular Disease 01/08/23 Riya Vega PA-C [address] [place] [address] Specialist Neurosurgery 05/12/24 Garret Clements PA-C [address] [address] Specialist Neurosurgery 05/12/24 Nighat Mcgee MD [address] [address] Surgeon Neurosurgery 05/12/24 documented as of this encounter
--- OUTSIDE RECORDS SUMMARY | 2025-07-10 17:50 | XMS_ITS | Encounter Summary ---
Author Organization [facility] Prior to 06/06/2024 Address [address] [place] [address] Care Team Providers Care Cast Iron Dipper Name Role Phone Ladi Medina MD Primary Care Provider Jayson Cadet MD Primary Care Provider + Melvin Rodas MD Unavailable Riya Vega PA-C Unavailable Garret Clements PA-C Unavailable Nighat Mcgee MD Unavailable [phone] Reason for Visit * Reason Comments E-prescribe Rx Request Encounter Details Date Type Department Care Team Description 05/19/2022 Refill [facility] - [address] [id number] Ladi Medina MD [address] [place] [id number] E-prescribe Rx Request Social History Tobacco Use [...] suspected to have Coronavirus/COVID-19? No / Unsure 04/20/2022 8:59 AM EDT documented as of this encounter Miscellaneous Notes * Telephone Encounter - Ladi Medina MD - 05/19/2022 5:24 PM EDT Refill sent * Telephone Encounter - Heidi McdonnellPBreonnaNBreonna - 05/19/2022 11:38 AM EDT Last filled 04/20/2022 UTD please review and sign * Telephone Encounter - Heidi Johnson - 05/19/2022 11:03 AM EDT When was patients last PE/WCC? 04/2022 When is patients next PE/WCC scheduled? Wait listed Ladi Medina RX REQUEST WHEN MED IS ON THE LIST: All of the medications requested were on the CURRENT MEDS list Did you check the Pharmacy information above?: YES Indicate how soon the patient needs the script: NICOLE Patient would like script to be: E-PRESCRIBED/FAXED TO PHARMACY Is the doctor here today?: YES Can the message wait until the doctor returns?: NO Has the patient been told that the prescription will not be filled until the end of the day? NO Ladi Medina Payor: [facility] FFS / Plan: [facility] / Product Type: MEDICAID RISK documented in this encounter Plan of Treatment Not on file documented as of this encounter Visit Diagnoses Not on filedocumented in this encounter Care Teams Cast Iron Dipper Relationship Specialty Start Date End Date Ladi Medina MD [address] [place] [address] PCP - General Pediatrics 11/10/21 08/09/22 Jayson Cadet MD [address] [place] [address] PCP - General Internal Medicine 08/10/22 Melvin Rodas MD [address] [place] [address] Specialist Cardiovascular Disease 01/08/23 Riya Vega PA-C [address] [address] Specialist Neurosurgery 05/12/24 Garret Clements PA-C [address] [address] Specialist Neurosurgery 05/12/24 Nighat Mcgee MD [address] [address] Surgeon Neurosurgery 05/12/24 documented as of this encounter
--- OUTSIDE RECORDS SUMMARY | 2025-07-10 17:50 | XMS_ITS | Encounter Summary ---
Author Organization [facility] Prior to 06/06/2024 Address [address] [place] [address] Care Team Providers Care Loop Drier Operator Name Role Phone Risa Eaton MD Primary Care Provider Unavailab le Ladi Medina MD Primary Care Provider Jayson Cadet MD Primary Care Provider + Melvin Rodas MD Unavailable Riya Vega PA-C Unavailable Garret Clements PA-C Unavailable [phone] Nighat Mcgee MD Unavailable [phone] Encounter Details Date Type Department Care Team Description 06/07/2015 Rn Charge Report Medical Records [address] [place] [address] Aaron Dugan i Social History Tobacco Use Types Packs/Day Years [...] on filedocumented in this encounter Care Teams Loop Drier Operator Relationship Specialty Start Date End Date Risa Eaton MD PCP - General 06/25/06 11/09/21 Ladi Medina MD [address] [place] [address] PCP - General Pediatrics 11/10/21 08/09/22 Jayson Cadet MD [address] [place] [address] PCP - General Internal Medicine 08/10/22 Melvin Rodas MD [address] [place] [address] Specialist Cardiovascular Disease 01/08/23 Riya Vega PA-C [address] [place] [address] Specialist Neurosurgery 05/12/24 Garret Clements PA-C [address] [address] Specialist Neurosurgery 05/12/24 Nighat Mcgee MD [address] [address] Surgeon Neurosurgery 05/12/24 documented as of this encounter
--- OUTSIDE RECORDS SUMMARY | 2025-07-10 17:50 | XMS_ITS | Encounter Summary ---
Author Organization [facility] Prior to 06/06/2024 Address [address] [place] [address] Care Team Providers Care Credit Risk Analytics Manager Name Role Phone Risa Eaton MD Primary Care Provider Unavailab Ladi Banda MD Primary Care Provider Jayson Cadet MD Primary Care Provider + Melvin Rodas MD Unavailable Riya Vega PA-C Unavailable Garret Clements PA-C Unavailable Nighat Mcgee MD Unavailable [phone] Encounter Details Date Type Department Care Team Description 07/08/2020 SCAN Medical Records [address] [place] [address] Abstract, Provider Social History Tobacco Use Types [...] on file documented as of this encounter Procedures Procedure Name Priority Date/Time Associated Diagnosis Comments OUTSIDE LAB Routine 07/08/2020 documented in this encounter Results * OUTSIDE LAB (07/08/2020) Provider Abstract LAB documented in this encounter Visit Diagnoses Not on filedocumented in this encounter Care Teams Credit Risk Analytics Manager Relationship Specialty Start Date End Date Risa Eaton MD PCP - General 06/25/06 11/09/21 Ladi Medina MD [address] [place] [address] PCP - General Pediatrics 11/10/21 08/09/22 Jayson Cadet MD [address] [place] [address] PCP - General Internal Medicine 08/10/22 Melvin Rodas MD [address] [place] [address] Specialist Cardiovascular Disease 01/08/23 Riya Vega PA-C [address] [address] Specialist Neurosurgery 05/12/24 Garret Clements PA-C [address] [address] Specialist Neurosurgery 05/12/24 Nighat Mcgee MD [address] [address] Surgeon Neurosurgery 05/12/24 documented as of this encounter
--- OUTSIDE RECORDS SUMMARY | 2025-07-10 17:50 | XMS_ITS | Encounter Summary ---
Author Organization [facility] Prior to 06/06/2024 Address [address] [place] [address] Care Team Providers Care Cuprous Chloride Helper Name Role Phone Risa Eaton MD Primary Care Provider Unavailab le Ladi eMdina MD Primary Care Provider Jayson Cadet MD Primary Care Provider + Melvin Rodas MD Unavailable Riya Vega PA-C Unavailable Garret Clements PA-C Unavailable Nighat Mcgee MD Unavailable [phone] Encounter Details Date Type Department Care Team Description 03/21/2011 Periodontal Assistant Report Medical Records [address] [place] [address] Rocael Bond MD Social History Tobacco Use [...] on filedocumented in this encounter Care Teams Cuprous Chloride Helper Relationship Specialty Start Date End Date Risa Eaton MD PCP - General 06/25/06 11/09/21 Ladi Medina MD [address] [place] [address] PCP - General Pediatrics 11/10/21 08/09/22 Jayson Cadet MD [address] [place] [address] PCP - General Internal Medicine 08/10/22 Melvin Rodas MD [address] [place] [address] Specialist Cardiovascular Disease 01/08/23 Riya Vega PA-C [address] [place] [address] Specialist Neurosurgery 05/12/24 Garret Clements PA-C [address] [address] Specialist Neurosurgery 05/12/24 Nighat Mcgee MD [address] [address] Surgeon Neurosurgery 05/12/24 documented as of this encounter
--- OUTSIDE RECORDS SUMMARY | 2025-07-10 17:50 | XMS_ITS | Encounter Summary ---
Author Organization [facility] Prior to 06/06/2024 Address [address] [place] [address] Care Team Providers Care Goat Herder Name Role Phone Jayson Cadet MD Primary Care Provider + Melvin Rodas MD Unavailable Riya Vega PA-C Unavailable Garret Clements PA-C Unavailable Nighat Mcgee MD Unavailable [phone] Encounter Details Date Type Department Care Team Description 03/21/2023 SCAN Medical Records [address] [place] [address] [facility] Social History Tobacco Use Types Packs/Day Years [...] suspected to have Coronavirus/COVID-19? No / Unsure 03/21/2023 9:54 AM EDT documented as of this encounter Plan of Treatment Not on file documented as of this encounter Visit Diagnoses Not on filedocumented in this encounter Care Teams Goat Herder Relationship Specialty Start Date End Date Jayson Cadet MD [address] [place] [address] PCP - General Internal Medicine 08/10/22 Melvin Rodas MD [address] [place] [address] Specialist Cardiovascular Disease 01/08/23 Riya Vega PA-C [address] [address] Specialist Neurosurgery 05/12/24 Garret Clements PA-C [address] [address] Specialist Neurosurgery 05/12/24 Nighat Mcgee MD [address] [address] Surgeon Neurosurgery 05/12/24 documented as of this encounter
--- OUTSIDE RECORDS SUMMARY | 2025-07-10 17:50 | XMS_ITS | Encounter Summary ---
Author Organization [facility] Prior to 06/06/2024 Address [address] [place] [address] Care Team Providers Care Research Assistant Member Name Role Phone Risa Eaton MD Primary Care Provider Unavailab Ladi Banda MD Primary Care Provider [phone] Jayson Cadet MD Primary Care Provider + Melvin Rodas MD Unavailable Riya Vega PA-C Unavailable [phone] Garret Clements PA-C Unavailable [phone] Nighat Mcgee MD Unavailable [phone] Encounter Details Date Type Department Care Team Description 01/13/2015 Drum Sander Offbearer Report Medical Records [address] [place] [address] Lori Leo Social History Tobacco Use Types [...] on filedocumented in this encounter Care Teams Research Assistant Member Relationship Specialty Start Date End Date Risa Eaton MD PCP - General 06/25/06 11/09/21 Ladi Medina MD [address] [place] [address] PCP - General Pediatrics 11/10/21 08/09/22 Jayson Cadet MD [address] [place] [address] PCP - General Internal Medicine 08/10/22 Melvin Rodas MD [address] [place] [address] Specialist Cardiovascular Disease 01/08/23 Riya Vega PA-C [address] [place] [address] Specialist Neurosurgery 05/12/24 Garret Clements PA-C [address] [address] Specialist Neurosurgery 05/12/24 Nighat Mcgee MD [address] [address] Surgeon Neurosurgery 05/12/24 documented as of this encounter
--- OUTSIDE RECORDS SUMMARY | 2025-07-10 17:50 | XMS_ITS | Encounter Summary ---
Author Organization [facility] Prior to 06/06/2024 Address [address] [place] [address] Care Team Providers Care Electric Deicer Inspector Name Role Phone Risa Eaton MD Primary Care Provider Unavailab Ladi Banda MD Primary Care Provider [phone] Jayson Cadet MD Primary Care Provider + Melvin Rodas MD Unavailable Riya Vega PA-C Unavailable [phone] Garret Clements PA-C Unavailable Nighat Mcgee MD Unavailable [phone] Reason for Visit * Reason Comments E-prescribe Rx Request Encounter Details Date Type Department Care Team Description 10/13/2021 Refill Pediatrics - [address] [address] Risa Eaton MD E-prescribe Rx Request Social History Tobacco Use [...] encounter Miscellaneous Notes * Telephone Encounter - Lala Amaya - 10/13/2021 10:43 AM EST When was patients last PE/WCC? 04/19/2021 When is patients next PE/WCC scheduled? Risa Eaton RX REQUEST WHEN MED IS [...] of the day? NO Risa Eaton Payor: [employer] FFS / Plan: [employer] / Product Type: MEDICAID RISK documented in this encounter Plan of Treatment Not on file documented as of this encounter Visit Diagnoses Not on filedocumented in this encounter Care Teams Electric Deicer Inspector Relationship Specialty Start Date End Date Risa Eaton MD PCP - General 06/25/06 11/09/21 Ladi Medina MD [address] [place] [address] PCP - General Pediatrics 11/10/21 08/09/22 Jayson Cadet MD [address] [place] [address] PCP - General Internal Medicine 08/10/22 Melvin Rodas MD [address] [place] [address] Specialist Cardiovascular Disease 01/08/23 Riya Vega PA-C [address] [address] Specialist Neurosurgery 05/12/24 Garret Clements PA-C [address] [address] Specialist Neurosurgery 05/12/24 Nighat Mcgee MD [address] [place] [address] [address] [place] [address] Surgeon Neurosurgery 05/12/24 documented as of this encounter
--- OUTSIDE RECORDS SUMMARY | 2025-07-10 17:50 | XMS_ITS | Encounter Summary ---
Author Organization [facility] Prior to 06/06/2024 Address [address] [place] [address] Care Team Providers Care Dehydrator Tender Name Role Phone Risa Eaton MD Primary Care Provider Unavailab Ladi Banda MD Primary Care Provider Jayson Cadet MD Primary Care Provider + Melvin Rodas MD Unavailable Riya Vega PA-C Unavailable [phone] Garret Clements PA-C Unavailable [phone] Nighat Mcgee MD Unavailable [phone] Encounter Details Date Type Department Care Team Description 09/01/2019 Release of Information Medical Records [address] [place] [address] Abstract, Provider Social History Tobacco Use Types [...] on filedocumented in this encounter Care Teams Dehydrator Tender Relationship Specialty Start Date End Date Risa Eaton MD PCP - General 06/25/06 11/09/21 Ladi Medina MD [address] [place] [address] PCP - General Pediatrics 11/10/21 08/09/22 Jayson Cadet MD [address] [place] [address] PCP - General Internal Medicine 08/10/22 Melvin Rodas MD [address] [place] [address] Specialist Cardiovascular Disease 01/08/23 Riya Vega PA-C [address] [place] [address] Specialist Neurosurgery 05/12/24 Garret Clements PA-C [address] [place] [address] Specialist Neurosurgery 05/12/24 Nighat Mcgee MD [address] [address] Surgeon Neurosurgery 05/12/24 documented as of this encounter
--- OUTSIDE RECORDS SUMMARY | 2025-07-10 17:50 | XMS_ITS | Encounter Summary ---
Author Organization [facility] Prior to 06/06/2024 Address [address] [place] [address] Care Team Providers Care Flat Drier Name Role Phone Risa Eaton MD Primary Care Provider Unavailab Ladi Banda MD Primary Care Provider [phone] Jayson Cadet MD Primary Care Provider + Melvin Rodas MD Unavailable Riya Vega PA-C Unavailable Garret Clements PA-C Unavailable [phone] Nighat Mcgee MD Unavailable [phone] Encounter Details Date Type Department Care Team Description 05/24/2011 [facility] [place] Medical Records [address] [place] [address] Abstract, Provider Social History Tobacco Use Types [...] on filedocumented in this encounter Care Teams Flat Drier Relationship Specialty Start Date End Date Risa Eaton MD PCP - General 06/25/06 11/09/21 Ladi Medina MD [address] [place] [address] PCP - General Pediatrics 11/10/21 08/09/22 Jayson Cadet MD [address] [place] [address] PCP - General Internal Medicine 08/10/22 Melvin Rodas MD [address] [place] [address] Specialist Cardiovascular Disease 01/08/23 Riya Vega PA-C [address] [place] [address] Specialist Neurosurgery 05/12/24 Garret Clements PA-C [address] [address] Specialist Neurosurgery 05/12/24 Nighat Mcgee MD [address] [address] Surgeon Neurosurgery 05/12/24 documented as of this encounter
--- OUTSIDE RECORDS SUMMARY | 2025-07-10 17:50 | XMS_ITS | Encounter Summary ---
Author Organization [facility] Prior to 06/06/2024 Address [address] [place] [address] Care Team Providers Care Shooter Helper Name Role Phone Risa Eaton MD Primary Care Provider Unavailab Ladi Banda MD Primary Care Provider [phone] Jayson Cadet MD Primary Care Provider + Melvin Rodas MD Unavailable Riya Vega PA-C Unavailable [phone] Garret Clements PA-C Unavailable Nighat Mcgee MD Unavailable [phone] Encounter Details Date Type Department Care Team Description 09/11/2016 Wire Inspector Report Medical Records [address] [place] [address] Artur Sanderson Social History Tobacco Use Types Packs/Day Years [...] on filedocumented in this encounter Care Teams Shooter Helper Relationship Specialty Start Date End Date Risa Eaton MD PCP - General 06/25/06 11/09/21 Ladi Medina MD [address] [place] [address] PCP - General Pediatrics 11/10/21 08/09/22 Jayson Cadet MD [address] [place] [address] PCP - General Internal Medicine 08/10/22 Melvin Rodas MD [address] [place] [address] Specialist Cardiovascular Disease 01/08/23 Riya Vega PA-C [address] [place] [address] Specialist Neurosurgery 05/12/24 Garret Clements PA-C [address] [place] [address] Specialist Neurosurgery 05/12/24 Nighat Mcgee MD [address] [address] Surgeon Neurosurgery 05/12/24 documented as of this encounter
--- OUTSIDE RECORDS SUMMARY | 2025-07-10 17:50 | XMS_ITS | Encounter Summary ---
Author Organization [employer] [facility] Prior to 06/06/2024 Address [address] [place] [address] Care Team Providers Care Sales And Service Representative Name Role Phone Risa Eaton MD Primary Care Provider Unavailab Ladi Banda MD Primary Care Provider [phone] Jayson Cadet MD Primary Care Provider + Melvin Rodas MD Unavailable Riya Vega PA-C Unavailable Garret Clements PA-C Unavailable Nighat Mcgee MD Unavailable [phone] Encounter Details Date Type Department Care Team Description 07/08/2020 Embedded Systems Engineer Report Medical Records [address] [place] [address] Abstract, Provider Social History Tobacco Use Types [...] on filedocumented in this encounter Care Teams Sales And Service Representative Relationship Specialty Start Date End Date Risa Eaton MD PCP - General 06/25/06 11/09/21 Ladi Medina MD [address] [place] [address] PCP - General Pediatrics 11/10/21 08/09/22 Jayson Cadet MD [address] [place] [address] PCP - General Internal Medicine 08/10/22 Melvin Rodas MD [address] [place] [address] [id number] Specialist Cardiovascular Disease 01/08/23 Riya Vega PA-C [address] [place] [address] Specialist Neurosurgery 05/12/24 Garret Clements PA-C [address] [place] [address] Specialist Neurosurgery 05/12/24 Nighat Mcgee MD [address] [address] Surgeon Neurosurgery 05/12/24 documented as of this encounter
--- OUTSIDE RECORDS SUMMARY | 2025-07-10 17:50 | XMS_ITS | Encounter Summary ---
Author Organization [facility] Prior to 06/06/2024 Address [address] [place] [address] Care Team Providers Care Scrub Tech Name Role Phone Risa Eaton MD Primary Care Provider Unavailab le Ladi Medina MD Primary Care Provider [phone] Jayson Cadet MD Primary Care Provider + Melvin Rodas MD Unavailable Riya Vega PA-C Unavailable Garret Clements PA-C Unavailable [phone] Nighat Mcgee MD Unavailable [phone] Encounter Details Date Type Department Care Team Description 06/30/2019 Graduate Teaching Associate Report Medical Records [address] [place] [address] Cipriano Hallman MD Social History Tobacco Use Types Packs/Day [...] on filedocumented in this encounter Care Teams Scrub Tech Relationship Specialty Start Date End Date Risa Eaton MD PCP - General 06/25/06 11/09/21 Ladi Medina MD [address] [place] [address] PCP - General Pediatrics 11/10/21 08/09/22 Jayson Cadet MD [address] [place] [address] PCP - General Internal Medicine 08/10/22 Melvin Rodas MD [address] [place] [address] Specialist Cardiovascular Disease 01/08/23 Riya Vega PA-C [address] [place] [address] Specialist Neurosurgery 05/12/24 Garret Clements PA-C [address] [address] Specialist Neurosurgery 05/12/24 Nighat Mcgee MD [address] [address] Surgeon Neurosurgery 05/12/24 documented as of this encounter
--- OUTSIDE RECORDS SUMMARY | 2025-07-10 17:50 | XMS_ITS | Encounter Summary ---
Author Organization [facility] Prior to 06/06/2024 Address [address] [place] [address] Care Team Providers Care Head Porter Baggage Name Role Phone Risa Eaton MD Primary Care Provider Unavailab Ladi Banda MD Primary Care Provider [phone] Jayson Cadet MD Primary Care Provider + Melvin Rodas MD Unavailable Riya Vega PA-C Unavailable Garret Clements PA-C Unavailable [phone] Nighat Mcgee MD Unavailable [phone] Reason for Visit * Reason Comments E-prescribe Rx Request Encounter Details Date Type Department Care Team Description 01/15/2016 Refill Pediatrics - [address] [address] Nikki Veras NP E-prescribe Rx Request Social [...] encounter Miscellaneous Notes * Telephone Encounter - Emma Paz - 01/16/2016 8:55 AM EDT When was patients last PE/WCC? 04/02/15 When is patients next PE/WCC scheduled? 04/04/16 Risa Eaton RX REQUEST WHEN MED IS ON THE LIST: All of the medications requested were on the CURRENT MEDS list Did you check the Pharmacy information above?: YES Indicate how soon the patient needs the script: OK FOR NEXT DAY Patient would like script to be: E-PRESCRIBED/FAXED TO PHARMACY Is the doctor here today?: NO Can the message wait until the doctor returns?: YES Has the patient been told that the prescription will not be filled until the end of the day? NO Risa Eaton Payor: [facility] MEDICA[facility] / Plan: [facility] MEDICAID O [id number] [place] / Product Type: HMO [id number] documented in this encounter Plan of Treatment Not on file documented as of this encounter Visit Diagnoses Not on filedocumented in this encounter Care Teams Head Porter Baggage Relationship Specialty Start Date End Date Risa Eaton MD PCP - General 06/25/06 11/09/21 Ladi Medina MD [address] [place] [address] PCP - General Pediatrics 11/10/21 08/09/22 Jayson Cadet MD [address] [place] [address] PCP - General Internal Medicine 08/10/22 Melvin Rodas MD [address] [place] [address] Specialist Cardiovascular Disease 01/08/23 Riya Vega PA-C [address] [address] Specialist Neurosurgery 05/12/24 Garret Clements PA-C [address] [address] Specialist Neurosurgery 05/12/24 Nighat Mcgee MD [address] [place] [address] Surgeon Neurosurgery 05/12/24 documented as of this encounter
--- OUTSIDE RECORDS SUMMARY | 2025-07-10 17:50 | XMS_ITS | Encounter Summary ---
Author Organization [facility] Prior to 06/06/2024 Address [address] [place] [address] Care Team Providers Care Petrographer Name Role Phone Risa Eaton MD Primary Care Provider Unavailab Ladi Banda MD Primary Care Provider Jayson Cadet MD Primary Care Provider + Melvin Rodas MD Unavailable Riya Vega PA-C Unavailable [phone] Garret Clements PA-C Unavailable Nighat Mcgee MD Unavailable [phone] Encounter Details Date Type Department Care Team Description 03/04/2010 Night Triage Doc Medical Records [address] [place] [address] Abstract, Provider Social History Tobacco Use Types Packs/Day Years Used Date Smoking Tobacco: Former Alcohol Use Standard Drinks/Week Comments Not Asked [...] on filedocumented in this encounter Care Teams Petrographer Relationship Specialty Start Date End Date Risa Eaton MD PCP - General 06/25/06 11/09/21 Ladi Medina MD [address] [place] [id number] PCP - General Pediatrics 11/10/21 08/09/22 Jayson Cadet MD [address] [place] [address] PCP - General Internal Medicine 08/10/22 Melvin Rodas MD [address] [place] [address] Specialist Cardiovascular Disease 01/08/23 Riya Vega PA-C [address] [address] Specialist Neurosurgery 05/12/24 Garret Clements PA-C [address] [address] Specialist Neurosurgery 05/12/24 Nighat Mcgee MD [address] [address] Surgeon Neurosurgery 05/12/24 documented as of this encounter
--- OUTSIDE RECORDS SUMMARY | 2025-07-10 17:51 | XMS_ITS | Encounter Summary ---
Author Organization [facility] Prior to 06/06/2024 Address [address] [place] [address] Care Team Providers Care Multifocal Lens Inspector Name Role Phone Risa Eaton MD Primary Care Provider Unavailab Ladi Banda MD Primary Care Provider [phone] Jayson Cadet MD Primary Care Provider + Melvin Rodas MD Unavailable Riya Vega PA-C Unavailable [phone] Garret Clements PA-C Unavailable [phone] Nighat Mcgee MD Unavailable [phone] Encounter Details Date Type Department Care Team Description 08/18/2013 Senior Bioinformatics Specialist Report Medical Records [address] [place] [address] Artur Sanderson Social History Tobacco Use Types [...] on filedocumented in this encounter Care Teams Multifocal Lens Inspector Relationship Specialty Start Date End Date Risa Eaton MD PCP - General 06/25/06 11/09/21 Ladi Medina MD [address] [place] [address] PCP - General Pediatrics 11/10/21 08/09/22 Jayson Cadet MD [address] [place] [address] PCP - General Internal Medicine 08/10/22 Melvin Rodas MD [address] [place] [address] Specialist Cardiovascular Disease 01/08/23 Riya Vega PA-C [address] [place] [address] Specialist Neurosurgery 05/12/24 Garret Clements PA-C [address] [place] [address] Specialist Neurosurgery 05/12/24 Nighat Mcgee MD [address] [address] Surgeon Neurosurgery 05/12/24 documented as of this encounter
--- OUTSIDE RECORDS SUMMARY | 2025-07-10 17:51 | XMS_ITS | Encounter Summary ---
Author Organization [facility] Prior to 06/06/2024 Address [address] [place] [address] Care Team Providers Care Oil Developer Name Role Phone Risa Eaton MD Primary Care Provider Unavailab Ladi Banda MD Primary Care Provider Jayson Cadet MD Primary Care Provider + Melvin Rodas MD Unavailable Riya Vega PA-C Unavailable [phone] Garret Clements PA-C Unavailable Nighat Mcgee MD Unavailable [phone] Encounter Details Date Type Department Care Team Description 11/30/2020 Program Associate Report Medical Records [address] [place] [address] Danielle Harding Social History Tobacco Use Types Packs/Day Years [...] Exposure Response Date Recorded In the last month, have you been in contact with someone who was confirmed or suspected to have Coronavirus / COVID-19? No / Unsure 11/11/2020 1:36 PM EDT documented as of this encounter Plan of Treatment Not on file documented as of this encounter Visit Diagnoses Not on filedocumented in this encounter Care Teams Oil Developer Relationship Specialty Start Date End Date Risa Eaton MD PCP - General 06/25/06 11/09/21 Ladi Medina MD [address] [place] [address] PCP - General Pediatrics 11/10/21 08/09/22 Jayson Cadet MD [address] [place] [address] PCP - General Internal Medicine 08/10/22 Melvin Rodas MD [address] [place] [address] Specialist Cardiovascular Disease 01/08/23 Riya Vega PA-C [address] [address] Specialist Neurosurgery 05/12/24 Garret Clements PA-C [address] [address] Specialist Neurosurgery 05/12/24 Nighat Mcgee MD [address] [address] Surgeon Neurosurgery 05/12/24 documented as of this encounter
--- OUTSIDE RECORDS SUMMARY | 2025-07-10 17:51 | XMS_ITS | Encounter Summary ---
Author Organization [employer] [facility] Prior to 06/06/2024 Address [address] [place] [address] Care Team Providers Care Soaping Machine Back Tender Name Role Phone Jayson Cadet MD Primary Care Provider + Melvin Rodas MD Unavailable Riya Vega PA-C Unavailable Garret Clements PA-C Unavailable Nighat Mcgee MD Unavailable [phone] Encounter Details Date Type Department Care Team Description 10/05/2022 Hospital Medical Records [address] [place] [address] [facility] Social History Tobacco Use Types Packs/Day Years Used Date Smoking Tobacco: Never Smokeless Tobacco: Former Comments:mom smokes outside Alcohol Use Standard Drinks/Week Comments No 0 (1 standard drink = 0.6 oz pur e alcohol) Sex Assigned at Date Recorded Not on file Job Start Date Occupation Industry Not on file Not on file Not on file COVID-19 Exposure Response Date Recorded In the last 10 days, have sunny u been in contact with someone who was confirmed or suspected to have Coronavirus/COVID-19? No / Unsure 10/04/2022 1:50 PM EST documented as of this encounter Plan of Treatment Not on file documented as of this encounter Procedures Procedure Name Priority Date/Time Associated Diagnosis Comments OUTSIDE EKG Routine 10/05/2022 OUTSIDE PLAIN FILM Routine 10/05/2022 OUTSIDE LAB Routine 10/05/2022 OUTSIDE LAB Routine 10/05/2022 OUTSIDE LAB Routine 10/05/2022 documented in this encounter Results * OUTSIDE PLAIN FILM (10/05/2022) Provider Default RADIOLOGY * OUTSIDE LAB (10/05/2022) Provider Default LAB * OUTSIDE LAB (10/05/2022) Provider Default LAB * OUTSIDE LAB (10/05/2022) Provider Default LAB * OUTSIDE EKG (10/05/2022) Provider Default CARDIOLOGY documented in this encounter Visit Diagnoses Not on filedocumented in this encounter Care Teams Soaping Machine Back Tender Relationship Specialty Start Date End Date Jayson Cadet MD [address] [place] [address] PCP - General Internal Medicine 08/10/22 Melvin Rodas MD [address] [place] [address] Specialist Cardiovascular Disease 01/08/23 Riya Vega PA-C [address] [address] Specialist Neurosurgery 05/12/24 Garret Clements PA-C 175 [facility] [address] [place] [address] Specialist Neurosurgery 05/12/24 Nighat Mcgee MD [address] [address] Surgeon Neurosurgery 05/12/24 documented as of this encounter
--- OUTSIDE RECORDS SUMMARY | 2025-07-10 17:51 | XMS_ITS | Encounter Summary ---
Author Organization [facility] Prior to 06/06/2024 Address [address] [place] [address] Care Team Providers Care Partner Cco Name Role Phone Risa Eaton MD Primary Care Provider Unavailab Ladi Banda MD Primary Care Provider Jayson Cadet MD Primary Care Provider + Melvin Rodas MD Unavailable Riya Vega PA-C Unavailable Garret Clements PA-C Unavailable Nighat Mcgee MD Unavailable [phone] Encounter Details Date Type Department Care Team Description 05/16/2021 [employer] Et[employer] Developer Report Medical Records [address] [place] [address] Cipriano Hallman MD Social History Tobacco Use [...] have Coronavirus / COVID-19? No / Unsure 05/09/2021 2:41 PM EDT documented as of this encounter Plan of Treatment Not on file documented as of this encounter Visit Diagnoses Not on filedocumented in this encounter Care Teams Partner Cco Relationship Specialty Start Date End Date Risa Eaton MD PCP - General 06/25/06 11/09/21 Ladi Medina MD [address] [place] [address] PCP - General Pediatrics 11/10/21 08/09/22 Jayson Cadet MD [address] [place] [address] PCP - General Internal Medicine 08/10/22 Mevlin Rodas MD [address] [place] [address] Specialist Cardiovascular Disease 01/08/23 Riya Vega PA-C [address] [address] Specialist Neurosurgery 05/12/24 Garret Clements PA-C [address] [address] Specialist Neurosurgery 05/12/24 Nighat Mcgee MD [address] [address] Surgeon Neurosurgery 05/12/24 documented as of this encounter
--- OUTSIDE RECORDS SUMMARY | 2025-07-10 17:51 | XMS_ITS | Encounter Summary ---
Author Organization [facility] Prior to 06/06/2024 Address [address] [place] [address] Care Team Providers Care Client Coordinator Name Role Phone Jayson Cadet MD Primary Care Provider + Melvin Rodas MD Unavailable Riya Vega PA-C Unavailable [phone] Garret Clements PA-C Unavailable Nighat Mgcee MD Unavailable [phone] Encounter Details Date Type Department Care Team Description 05/26/2024 Telephone [facility] Medical [facility] Neurosurgery [place] [address] [address] Nighat Mcgee MD [address] [id number] Social History Tobacco Use Types Packs/Day Years [...] encounter Miscellaneous Notes * Telephone Encounter - Garret Clements PA-C - 05/29/2024 4:55 PM EDT I spoke to Ms. Victor. I explained that I had reviewed her labs and that all were back except for the hCG tumor marker. I told her that if that came back negative as well, we would need a repeat scan in 1 year. She was appreciative. * Telephone Encounter - Felecia Perez - 05/28/2024 2:09 PM EDT Returned your call. Vm did not go through. Please try again later. * Telephone Encounter - Garret Clements PA-C - 05/28/2024 2:05 PM EDT I called the patient but got her voicemail and left a message. * Telephone Encounter - Jacklyn Haney - 05/26/2024 4:43 PM EDT Patient looking to get lab results, please call, thank you! documented in this encounter Plan of Treatment Not on file documented as of this encounter Visit Diagnoses Not on filedocumented in this encounter Care Teams Client Coordinator Relationship Specialty Start Date End Date Jayson Cadet MD [address] [place] [address] PCP - General Internal Medicine 08/10/22 Melvin Rodas MD [address] [place] [address] Specialist Cardiovascular Disease 01/08/23 Riya Vega PA-C [address] [address] Specialist Neurosurgery 05/12/24 Garret Clements PA-C [address] [address] Specialist Neurosurgery 05/12/24 Nighat Mcgee MD [address] [address] Surgeon Neurosurgery 05/12/24 documented as of this encounter
--- OUTSIDE RECORDS SUMMARY | 2025-07-10 17:51 | XMS_ITS | Encounter Summary ---
Author Organization [facility] Prior to 06/06/2024 Address [address] [place] [address] Care Team Providers Care Social Media Analyst Name Role Phone Risa Eaton MD Primary Care Provider Unavailab Ladi Banda MD Primary Care Provider Jayson Cadet MD Primary Care Provider + Melvin Rodas MD Unavailable Riya Vega PA-C Unavailable Garret Clements PA-C Unavailable [phone] Nighat Mcgee MD Unavailable [phone] Reason for Visit * Reason Comments E-prescribe Rx Request Encounter Details Date Type Department Care Team Description 04/14/[address] [address] Risa Eaton MD E-prescribe Rx Request Social [...] have Coronavirus / COVID-19? No / Unsure 04/15/2021 10:47 AM EDT documented as of this encounter Miscellaneous Notes * Telephone Encounter - Anabell Lyons M.A. - 04/14/2021 2:40 PM EDT Last alma: 11/11/20 Next alma: 04/19/21 * Telephone Encounter - Carolyn Tom - 04/14/2021 2:19 PM EDT When was patients last PE/WCC? 04/09/2020 When is patients next PE/WCC scheduled? 04/19/2021 Risa Eaton RX REQUEST WHEN MED IS [...] of the day? NO Risa Eaton [facility] / Plan: [facility] / Product Type: MEDICAID RISK documented in this encounter Plan of Treatment Not on file documented as of this encounter Visit Diagnoses Not on filedocumented in this encounter Care Teams Social Media Analyst Relationship Specialty Start Date End Date Risa Eaton MD PCP - General 06/25/06 11/09/21 Ladi Medina MD [address] [place] [address] PCP - General Pediatrics 11/10/21 08/09/22 Jayson Cadet MD [address] [place] [address] PCP - General Internal Medicine 08/10/22 Melvin Rodas MD [address] [place] [address] Specialist Cardiovascular Disease 01/08/23 Riya Vega PA-C [address] [address] Specialist Neurosurgery 05/12/24 Garret Clements PA-C [address] [address] Specialist Neurosurgery 05/12/24 Nighat Mcgee MD [address] [address] Surgeon Neurosurgery 05/12/24 documented as of this encounter
--- OUTSIDE RECORDS SUMMARY | 2025-07-10 17:51 | XMS_ITS | Encounter Summary ---
Author Organization [employer] [facility] Prior to 06/06/2024 Address [address] [place] [address] Care Team Providers Care Assistant Center Director Name Role Phone Risa Eaton MD Primary Care Provider Unavailab Ladi Banda MD Primary Care Provider Jayson Cadet MD Primary Care Provider + Melvin Rodas MD Unavailable Riya Vega PA-C Unavailable Garret Clements PA-C Unavailable Nighat Mcgee MD Unavailable [phone] Encounter Details Date Type Department Care Team Description 01/25/2021 Manufacturing Test Engineer Report Medical Records [address] [place] [address] Danielle Harding Social History Tobacco Use Types [...] filedocumented in this encounter Care Teams Assistant Center Director Relationship Specialty Start Date End Date Risa Eaton MD PCP - General 06/25/06 11/09/21 Ladi Medina MD [address] [place], [place] [phone] PCP - General Pediatrics 11/10/21 08/09/22 Jayson Caedt MD [address] [place] [address] PCP - General Internal Medicine 08/10/22 Melvin Rodas MD [address] [place] [address] Specialist Cardiovascular Disease 01/08/23 Riya Vega PA-C [address] [place] [address] Specialist Neurosurgery 05/12/24 Garret Clements PA-C [address] [place] [address] Specialist Neurosurgery 05/12/24 Nighat Mcgee MD [address] [address] Surgeon Neurosurgery 05/12/24 documented as of this encounter
--- OUTSIDE RECORDS SUMMARY | 2025-07-10 17:51 | XMS_ITS | Encounter Summary ---
Author Organization [employer] [facility] Prior to 06/06/2024 Address [address] [place] [address] Care Team Providers Care Chemotherapist Name Role Phone Jayson Cadet MD Primary Care Provider + Melvin Rodas MD Unavailable Riya Vega PA-C Unavailable [phone] Garret Clements PA-C Unavailable Nighat Mcgee MD Unavailable [phone] Encounter Details Date Type Department Care Team Description 01/26/2023 SCAN Medical Records [address] [place] [address] [facility] Social History Tobacco Use Types Packs/Day Years [...] suspected to have Coronavirus/COVID-19? No / Unsure 12/27/2022 8:43 AM EDT documented as of this encounter Plan of Treatment Not on file documented as of this encounter Visit Diagnoses Not on filedocumented in this encounter Care Teams Chemotherapist Relationship Specialty Start Date End Date Jayson Cadet MD [address] [place] [address] PCP - General Internal Medicine 08/10/22 Melvin Rodas MD [address] [place] [address] Specialist Cardiovascular Disease 01/08/23 Riya Vega PA-C [address] [address] Specialist Neurosurgery 05/12/24 Garret Clements PA-C [address] [address] Specialist Neurosurgery 05/12/24 Nighat Mcgee MD [address] [address] Surgeon Neurosurgery 05/12/24 documented as of this encounter
--- OUTSIDE RECORDS SUMMARY | 2025-07-10 17:51 | XMS_ITS | Encounter Summary ---
Author Organization [employer] [facility] Prior to 06/06/2024 Address [address] [place] [address] Care Team Providers Care Wrestling Coach Name Role Phone Risa Eaton MD Primary Care Provider Unavailab Ladi Banda MD Primary Care Provider Jayson Cadet MD Primary Care Provider + Melvin Rodas MD Unavailable Riya Vega PA-C Unavailable [phone] Garret Clements PA-C Unavailable Nighat Mcgee MD Unavailable [phone] Encounter Details Date Type Department Care Team Description 07/15/2014 Test Man Report Medical Records [address] [place] [address] Artur Sanderson Social History Tobacco Use Types [...] on filedocumented in this encounter Care Teams Wrestling Coach Relationship Specialty Start Date End Date Risa Eaton MD PCP - General 06/25/06 11/09/21 Ladi Medina MD [address] [place] [address] PCP - General Pediatrics 11/10/21 08/09/22 Jayson Cadet MD [address] [place] [address] PCP - General Internal Medicine 08/10/22 Melvin Rodas MD [address] [place] [address] Specialist Cardiovascular Disease 01/08/23 Riya Vega PA-C [address] [place] [address] Specialist Neurosurgery 05/12/24 Garret Clements PA-C [address] [place] [address] Specialist Neurosurgery 05/12/24 Nighat Mcgee MD [address] [address] Surgeon Neurosurgery 05/12/24 documented as of this encounter
--- OUTSIDE RECORDS SUMMARY | 2025-07-10 17:51 | XMS_ITS | Clinical Summary ---
Author Organization [facility] Address [address] [place] [address] Care Team Providers Care Wax Cutter Name Role Phone Risa Eaton MD Primary Care Provider [phone] Source Comments Please note that some or [...] so, obtain the minor's consent prior to disclosure.[facility] Allergies Active Allergy Reactions Criticality Noted Date Comments Cat Dander 01/08/2007 Dog Dander 01/08/2007 Mite-Dermatophagoides Farinae, Standardized Low 06/18/2008 Other reaction(s): Runny Nose/Rhinitis Fruit Extracts 03/29/2020 [place]-contact rxn dizzy, hives, swelling, throat closing [place]-throat closing, throat itching Blueberry-throat itching Grass Pollen-January Grass Standard 01/21/2018 Horse Dander 03/29/2011 Nkngkedo-Lkdfpy-Srnlb Extract 01/21/2018 Peanut 08/18/2008 Other reaction(s): Diagnosed [...] patient's age to complete this topic Insurance [facility] [employer] Care Teams Wax Cutter Relationship Specialty Start Date End Date Risa Eaton MD [address] [place] [address] PCP - General General Pediatrics 04/15/20
--- OUTSIDE RECORDS SUMMARY | 2025-07-10 17:51 | XMS_ITS | Encounter Summary ---
Author Organization [facility] [facility] Prior to 06/06/2024 Address [address] [place] [address] Care Team Providers Care Railroad Car Cleaning Supervisor Name Role Phone Risa Eaton MD Primary Care Provider Unavailab Ladi Banda MD Primary Care Provider Jayson Cadet MD Primary Care Provider + Melvin Rodas MD Unavailable Riya Vega PA-C Unavailable [phone] Garret Clements PA-C Unavailable Nighat Mcgee MD Unavailable [phone] Reason for Visit * Reason Comments E-prescribe Rx Request Encounter Details Date Type Department Care Team Description 12/07/2017 Refill Pediatrics - [address] [address] Risa Eaton MD E-prescribe Rx Request Social History Tobacco Use Types Packs/Day Years Used Date Smoking Tobacco: Never Smokeless Tobacco: Never Comments:mom quit smoking Alcohol Use Standard Drinks/Week Comments Not Asked 0 (1 standard drink = 0.6 oz pur e alcohol) Sex Assigned at Date Recorded Not on file Job Start Date Occupation Industry Not on file Not on file Not on file documented as of this encounter Miscellaneous Notes * Telephone Encounter - Risa Eaton MD - 12/07/2017 4:29 PM EDT Please book [facility] * Telephone Encounter - Gisel Ruiz - 12/07/2017 3:40 PM EDT When was patients last PE/WCC? 04/05/17 When is patients next PE/WCC scheduled? Waitlisted Risa Eaton RX REQUEST WHEN MED IS [...] of the day? NO Risa Eaton Payor: [employer] FFS / Plan: [facility] / Product Type: MEDICAID RISK documented in this encounter Plan of Treatment Not on file documented as of this encounter Visit Diagnoses Not on filedocumented in this encounter Care Teams Railroad Car Cleaning Supervisor Relationship Specialty Start Date End Date Risa Eaton MD PCP - General 06/25/06 11/09/21 Ladi Medina MD [address] [place] [address] PCP - General Pediatrics 11/10/21 08/09/22 Jayson Cadet MD [address] [place] [address] PCP - General Internal Medicine 08/10/22 Melvin Rodas MD [address] [place] [address] Specialist Cardiovascular Disease 01/08/23 Riya Vega PA-C [address] [place] [address] Specialist Neurosurgery 05/12/24 Garret Clements PA-C 175 [facility] [address] [place] [address] Specialist Neurosurgery 05/12/24 Nighat Mcgee MD [address] [address] Surgeon Neurosurgery 05/12/24 documented as of this encounter
--- OUTSIDE RECORDS SUMMARY | 2025-07-10 17:51 | XMS_ITS | Encounter Summary ---
Author Organization [employer] [facility] Prior to 06/06/2024 Address [address] [place] [address] Care Team Providers Care Marriage Therapist Name Role Phone Risa Eaton MD Primary Care Provider Unavailab Ladi Banda MD Primary Care Provider Jayson Cadet MD Primary Care Provider + Melvin Rodas MD Unavailable Riya Vega PA-C Unavailable Garret Clements PA-C Unavailable Nighat Mcgee MD Unavailable [phone] Encounter Details Date Type Department Care Team Description 2004 Property Developer Report Medical Records [address] [place] [address] Cheryl Pichardo Social History Tobacco Use Types Packs/Day Years Used Date Smoking Tobacco: Never Assessed Sex Assigned at Date Recorded Not on file Job Start Date Occupation Industry Not on file Not on file Not on file documented as of this encounter Plan of Treatment Not on file documented as of this encounter Visit Diagnoses Not on filedocumented in this encounter Care Teams Marriage Therapist Relationship Specialty Start Date End Date Risa Eaton MD PCP - General 06/25/06 11/09/21 Ladi Median MD [address] [place] [address] PCP - General Pediatrics 11/10/21 08/09/22 Jayson Cadet MD [address] [place] [address] PCP - General Internal Medicine 08/10/22 Melvin Rodas MD [address] [place] [address] Specialist Cardiovascular Disease 01/08/23 Riya Vega PA-C [address] [address] Specialist Neurosurgery 05/12/24 Garret Clements PA-C [address] [address] Specialist Neurosurgery 05/12/24 Nighat Mcgee MD [address] [address] Surgeon Neurosurgery 05/12/24 documented as of this encounter
--- OUTSIDE RECORDS SUMMARY | 2025-07-10 17:51 | XMS_ITS | Encounter Summary ---
Author Organization [facility] Prior to 06/06/2024 Address [address] [place] [address] Care Team Providers Care Maintenance Construction Helper Name Role Phone Jayson Cadet MD Primary Care Provider + Melvin Rodas MD Unavailable Riya Vega PA-C Unavailable [phone] Garret Clements PA-C Unavailable Nighat Mcgee MD Unavailable [phone] Encounter Details Date Type Department Care Team Description 05/13/2024 [facility] Medical [facility] Neurosurgery [place] [address] [address] Nighat Mcgee MD [address] [id number] Social History Tobacco Use Types Packs/Day Years [...] on filedocumented in this encounter Care Teams Maintenance Construction Helper Relationship Specialty Start Date End Date Jayson Cadet MD [address] [place] [address] PCP - General Internal Medicine 08/10/22 Melvin Rodas MD [address] [place] [address] Specialist Cardiovascular Disease 01/08/23 Riya Vega PA-C [address] [address] Specialist Neurosurgery 05/12/24 Garret Clements PA-C [address] [address] Specialist Neurosurgery 05/12/24 Nighat Mcgee MD [address] [address] Surgeon Neurosurgery 05/12/24 documented as of this encounter
--- OUTSIDE RECORDS SUMMARY | 2025-07-10 17:51 | XMS_ITS | Encounter Summary ---
Author Organization [facility] Prior to 06/06/2024 Address [address] [place] [address] Care Team Providers Care Shot Packer Name Role Phone Risa Eaton MD Primary Care Provider Unavailab Ladi Medina MD Primary Care Provider [phone] Jayson Cadet MD Primary Care Provider + Melvin Rodas MD Unavailable Riya Vega PA-C Unavailable Garret Clements PA-C Unavailable [phone] Nighat Mcgee MD Unavailable [phone] Encounter Details Date Type Department Care Team Description 04/04/2021 Telephone [facility] - [address] [address] Risa Eaton MD Social History Tobacco Use Types Packs/Day [...] on filedocumented in this encounter Care Teams Shot Packer Relationship Specialty Start Date End Date Risa Eaton MD PCP - General 06/25/06 11/09/21 Ladi Medina MD [address] [place] [address] PCP - General Pediatrics 11/10/21 08/09/22 Jayson Cadet MD [address] [place] [address] PCP - General Internal Medicine 08/10/22 Melvin Rodas MD [address] [place] [address] Specialist Cardiovascular Disease 01/08/23 Riya Vega PA-C [address] [place] [address] Specialist Neurosurgery 05/12/24 Garret Clements PA-C [address] [address] Specialist Neurosurgery 05/12/24 Nighat Mcgee MD [address] [address] Surgeon Neurosurgery 05/12/24 documented as of this encounter
--- OUTSIDE RECORDS SUMMARY | 2025-07-10 17:51 | XMS_ITS | Encounter Summary ---
Author Organization [facility] Prior to 06/06/2024 Address [address] [place] [address] Care Team Providers Care Launch Operator Name Role Phone Jayson Cadet MD Primary Care Provider + Melvin Rodas MD Unavailable Riya Vega PA-C Unavailable Garret Clements PA-C Unavailable Nighat Mcgee MD Unavailable [phone] Encounter Details Date Type Department Care Team Description 08/11/2022 Release of Information Medical Records [address] [place] [id number] Abstract, Provider Social History Tobacco Use Types [...] suspected to have Coronavirus/COVID-19? No / Unsure 08/11/2022 8:14 AM EST documented as of this encounter Plan of Treatment Not on file documented as of this encounter Visit Diagnoses Not on filedocumented in this encounter Care Teams Launch Operator Relationship Specialty Start Date End Date Jayson Cadet MD [address] [place] [address] PCP - General Internal Medicine 08/10/22 Melvin Rodas MD [address] [place] [phone] Specialist Cardiovascular Disease 01/08/23 Riya Vega PA-C [address] [address] Specialist Neurosurgery 05/12/24 Garret Clements PA-C [address] [address] Specialist Neurosurgery 05/12/24 Nighat Mcgee MD [address] [address] Surgeon Neurosurgery 05/12/24 documented as of this encounter
--- OUTSIDE RECORDS SUMMARY | 2025-07-10 17:51 | XMS_ITS | Clinical Summary ---
Author Organization [address] Address [address] [place] [phone] Phone Care Team Providers Care Core Worker Name Role Phone Jayson Cadet MD Primary Care Pr ovider Allergies Active Allergy Reactions Criticality Noted Date Comments Cat Dander 01/08/2007 Dog Dander 01/08/2007 Fish Oil 03/29/2020 Fish-throat closing Shellfish-hives and itching Fruit Extracts 03/29/2020 Gates-contact rxn dizzy, hives, swelling, throat closing Center-throat closing, throat itching Blueberry-throat itching Gates-contact rxn dizzy, hives, swelling, throat closing Blueberry-throat itching Grass Pollen-Sharita Grass Standard 01/21/2018 Horse Dander 03/29/2011 House Dust Runny nose Low 06/18/2008 Iodinated Contrast Media 06/19/2023 Latex Rash 05/13/2025 Qulajfcj-Mblhnm-Yurkz Extract 01/21/2018 Mite-Dermatophagoides Farinae, Standardized Low 06/18/2008 Other reaction(s): Runny Nose/Rhinitis Nut - Unspecified 08/18/2008 Other Reaction(s): Diagnosed by allergy testing Gates (Prunus Persica) Anaphylaxis High 05/12/2024 Peanut 08/18/2008 [...] cyst 04/24/2024 Overview (06/05/2024): CT head 04/13/24 [facility] ER MRI 05/10/24: follow-up MRI recommended 6 [...] top of her head. She saw her thermal cutter hand and exam was normal. She reports dizziness [...] Assessment & Plan: 04/27 - followed with THEOLOGY TEACHER. Underwent multiple US, she was told not to worry about them. Does not have any follow up with THEOLOGY TEACHER at this time. Chronic midline thoracic back [...] pain 04/11/2019 Overview (06/05/2024): 04/24: seen at [facility], nl cxr, ekg, nl labs Costochondritis 11/01/2018 Overview (06/05/2024): 10/28/18: seen by [facility]. EKg normal. Motrin. Chest pain likely due to anxiety 04/24: chest pain: seen at [facility]. Nl CXR, EKG, labs Acne vulgaris 06/26/2017 Adverse reaction to SSRI antidepressant drug 02/2017 Overview (06/05/2024): Prozac, heart racing diarrhea, seen at [facility] 03/23: nl EKg at [facility] Migraine 04/05/2017 Overview (06/05/2024): 05/24: seen by [...] is getting services 03/27/15: nl hearing [facility] 04/26: has iep Last Assessment & Plan: Assessment:unchanged Plan:has 504 plan reading help Low vision, both eyes 03/29/2012 Overview (06/05/2024): 10/17: seen by Dr. Arnold, vision. F/u 6 months 03/19: does need glasses 03/21: seen every 6 months 02/22: new glasses [facility] Last Assessment & Plan: Assessment:worsening Plan:has rx for glasses Allergic rhinitis 12/04/2006 Overview (06/05/2024): Seen by Dr. Malone, [facility] 01/14. Flonase spray. Will do allergy testing Has epi joe pen RAST testing 2009, dog, cats, pine nuts etc 01/14 allergy testing: tree nuts, soy borderline to peanuts. Dust, trees, ragweed, Gambian plantain, grass, cat dog horse Started immunotherapy [...] 5:00 PM EST Office Visit Adult Medicine [address] [phone] Brina Dong PA Other migraine without status migrainosus, not intractable (Primary Dx); Pineal gland cyst; Leukocytosis, unspecified type; Vitamin D deficiency 05/26/2025 2:30 PM EDT Clinical Support [facility] Surgery [address] [address] Visit for suture removal (Primary Dx) 05/13/2025 3:30 PM EDT Procedure visit [address] [phone] Janes Brock, DO Lipoma of buttock (Primary Dx) 04/29/[address] [phone] Janes Brock, DO 04/14/2025 2:45 PM EDT Consult [address] [phone] Janes Brock, DO Skin lesion from Last 3 Months Immunizations Immunization Administration Dates Next Due DTaP (Infanrix) 6wks to less than 7yo ,01/31/2006,02/01/2005,12/02,2004 RWaN-ZAA-ZDR (Pentacel) 2mo to less than 5yo 08/03/2005,02/01/2005,2004,10/03 [...] Comments OTHER SURGICAL HISTORY 01/10/2021 Bilateral PROCEDURE: CT RPR 1ST INGUN HRNA AGE 4 YRS/> REDUCIBLE; COMMENT: Dr. Harding OTHER SURGICAL HISTORY Bilateral PROCEDURE: CT EXCISION NAIL MATRIX PERMANENT REMOVAL; COMMENT: Lateral [...] scan colonoscopy if sx recur. Enrolled in [employer] program. 12/18: no subsequent rectal bleeding. If [...] COMMENT: 09/20: seen at Dr. Leo's [employer] program 10/18: child gained 1.8 pounds in a month. No goals or interests. Did not participate in visit. Consider counseling 12/18: Gained 1 kg, encouraged increased activity Dysthymia 04/02/2014 DX:Dysthymia; CO MMENT: 03/20 - not currently in counseling - Right forearm injury 01/22/2018 DX:Right fo rearm injury; COMMENT: 01/21: seen at [facility] ER. Negative xray Mononucleosis 10/22/2017 DX:Mononucleosis ; [...] COMMENT: Finger tips. Not painful. Seen by center punch operator Chest pain 04/11/2019 DX:Chest pain; C OMMENT: 04/24: seen at [facility], nl cxr, ekg, nl labs Family history of [...] age 37 Brother Father Alive 01/07/1980 Virgilio ael Maternal Grandfather Maternal Grandmother Mother Alive 12/31/1983 [...] 5:00 PM EST Office Visit Adult Medicine [address] [phone] Brina Dong PA [address] [place] [address] Health Maintenance Due Date Last Done Comments Meningococcal B Vaccine (1 of 2 - Standard) 2020 Depression Screening 08/06/2024 04/24/2024 COVID-19 Vaccine (1 - season) 2025 Influenza Vaccine (#1) 2025 10/11/2009 [...] * SUTURE REMOVAL (05/26/2025 2:23 PM EDT) Saida Schneider MA - 05/26/2025 2:23 PM EDT Saida [...] the signs to look out for infections. 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 Buttock, Right, [...] two pieces. TS 05/15/2025 12:32 PM EDT [facility] Disclaimer Unless otherwise specified, all tissue is 10% NB formalin fixed and paraffin embedded. 05/15/2025 12:32 PM EDT [facility] Tissue Structure of right buttock / Unknown Non-blood Collection / Unknown 05/13/2025 3:30 PM EDT 05/13/2025 3:34 PM EDT Janes Brock DO LAB PATHOLOGY ORDERABLES Final Result [facility] [address] [place] [address], [place] [phone] * Hepatitis C antibody (03/27/2025 12:20 PM EDT) Hepatitis C Antibody Negative Negative LAB CHEMISTRY METHOD 03/27/2025 4:39 PM EDT [facility] Blood Venous blood specimen / Unknown Venipuncture / Unknown 03/27/2025 12:20 PM EDT 03/27/2025 12:20 PM EDT us Brina LOWE LAB BLOOD ORDERABLES Final Re sult [facility] [address] [place] [address], [place] [phone] * HIV 1,2 antibody, p24 antigen with reflex to differentiation (03/27/2025 12:20 PM EDT) [facility] HIV Combo AB/AG Negative Negative LAB CHEMISTRY METHOD 03/27/2025 4:40 PM EDT [facility] Blood Venous blood specimen / Unknown Venipuncture / Unknown 03/27/2025 12:20 PM EDT 03/27/2025 12:20 PM EDT [facility] - 03/27/2025 4:40 PM EDT This assay is a 4th generation assay allowing for earlier detection of HIV infection by detecting the presence of the HIV-1 p24 antigen as well as the traditional antibodies to HIV type 1 (including group O) and type 2. Use of a 4th generation assay is the current CDC recommendation for HIV screening. us Brina LOWE LAB BLOOD ORDERABLES Final Re sult [facility] [address] [place] [address], [place] [phone] * Lipid panel with reflex to direct LDL (03/27/2025 12:20 PM EDT) [facility] Cholesterol 106 0 - 200 mg/dL LAB CHEMISTRY METHOD 03/27/2025 4:02 PM EDT [facility] Triglycerides 111 0 - 150 mg/dL LAB CHEMISTRY METHOD 03/27/2025 4:02 PM EDT [facility] HDL 44 >=40 mg/dL LAB CHEMISTRY METHOD 03/27/2025 4:02 PM EDT [facility] LDL Calculated 40 0 - 100 mg/dL LAB CHEMISTRY METHOD 03/27/2025 4:02 PM EDT [facility] Comment:Estimated LDL Calcul ated using equation: Total cholesterol - HDL cholesterol - (Triglycerides/5) VLDL Cholesterol Eric 22.2 mg/dL LAB CHEMISTRY METHOD 03/27/2025 4:02 PM EDT [facility] Non HDL Chol. (LDL+VLDL) 62 <145 mg/dL LAB CHEMISTRY METHOD 03/27/2025 4:02 PM EDT [facility] Chol/HDL Ratio 2.4 0.0 - 4.4 LAB CHEMISTRY METHOD 03/27/2025 4:02 PM EDT [facility] Blood Venous blood specimen / Unknown Venipuncture / Unknown 03/27/2025 12:20 PM EDT 03/27/2025 12:20 PM EDT Brina LOWE LAB BLOOD ORDERABLES Final Re sult [facility] [address] [place] [address], [place] [phone] * Chlamydia trachomatis and Neisseria gonorrhoeae molecular study (03/27/2025 12:20 PM EDT) Pathologist [facility] Neisseria gonorrhoeae PCR Negative Negative LAB MOLECULAR DIAGNOSTICS METHOD 03/27/2025 4:39 PM EDT [facility] Chlamydia trachomatis PCR Negative Negative LAB MOLECULAR DIAGNOSTICS METHOD 03/27/2025 4:39 PM EDT [facility] Urine First stream urine specimen / Unknown Non-blood Collection / Unknown 03/27/2025 12:20 PM EDT 03/27/2025 12:20 PM EDT Brina LOWE LAB MICROBIOLOGY - GENERAL OR DERABLES Final Result [facility] [address] [place] [address], [place] [phone] * Depression Screening (04/24/2024) Pathologist [facility] Depression Screening Abstracted Historical Provider HEALTH MAINTENANCE Final Result from Last 3 Months or Most Recently Relevant to Health Maintenance Insurance [facility] Care Teams Core Worker Relationship Specialty Start Date End Date Jayson Cadet MD [address] [place] [phone] PCP - General 08/10/22
--- OUTSIDE RECORDS SUMMARY | 2025-07-10 17:51 | XMS_ITS | Encounter Summary ---
Author Organization [employer] [facility] Prior to 06/06/2024 Address [address] [place] [address] Care Team Providers Care Quarry Extraction Worker Name Role Phone Risa Eaton MD Primary Care Provider Unavailab Ladi Banda MD Primary Care Provider Jayson Cadet MD Primary Care Provider + Melvin Rodas MD Unavailable Riya Vega PA-C Unavailable Garret Clements PA-C Unavailable Nighat Mcgee MD Unavailable [phone] Encounter Details Date Type Department Care Team Description 04/08/2014 Wireworker Report Medical Records [address] [place] [id number] Artur Sanderson Social History Tobacco Use Types [...] on filedocumented in this encounter Care Teams Quarry Extraction Worker Relationship Specialty Start Date End Date Risa Eaton MD PCP - General 06/25/06 11/09/21 Ladi Medina MD [address] [place] [address] PCP - General Pediatrics 11/10/21 08/09/22 Jayson Cadet MD [address] [place] [address] PCP - General Internal Medicine 08/10/22 Melvin Rodas MD [address] [place] [address] Specialist Cardiovascular Disease 01/08/23 Riya Vega PA-C [address] [place] [address] Specialist Neurosurgery 05/12/24 Garret Clements PA-C [address] [place] [address] Specialist Neurosurgery 05/12/24 Nighat Mcgee MD [address] [address] Surgeon Neurosurgery 05/12/24 documented as of this encounter
--- OUTSIDE RECORDS SUMMARY | 2025-07-10 17:51 | XMS_ITS | Encounter Summary ---
Author Organization [facility] Prior to 06/06/2024 Address [address] [place] [address] Care Team Providers Care Hemodialysis Technician Name Role Phone Risa Eaton MD Primary Care Provider Unavailab Ladi Banda MD Primary Care Provider Jayson Cadet MD Primary Care Provider + Melvin Rodas MD Unavailable Riya Vega PA-C Unavailable [phone] Garret Clements PA-C Unavailable Nighat Mcgee MD Unavailable [phone] Encounter Details Date Type Department Care Team Description 06/22/2014 Orders Only Pediatrics - [address] [address] Risa Eaton MD Social History Tobacco Use [...] on filedocumented in this encounter Care Teams Hemodialysis Technician Relationship Specialty Start Date End Date Risa Eaton MD PCP - General 06/25/06 11/09/21 Ladi Medina MD [address] [place] [address] PCP - General Pediatrics 11/10/21 08/09/22 Jayson Cadet MD [address] [place] [address] PCP - General Internal Medicine 08/10/22 Melvin Rodas MD [address] [place] [address] Specialist Cardiovascular Disease 01/08/23 Riya Vega PA-C [address] [place] [address] Specialist Neurosurgery 05/12/24 Garret Clements PA-C [address] [address] Specialist Neurosurgery 05/12/24 Nighat Mcgee MD [address] [address] Surgeon Neurosurgery 05/12/24 documented as of this encounter
--- OUTSIDE RECORDS SUMMARY | 2025-07-10 17:51 | XMS_ITS | Encounter Summary ---
Author Organization [facility] [employer] [facility] Prior to 06/06/2024 Address [address] [place] [address] Care Team Providers Care Malt Liquors Sales Representative Name Role Phone Risa Eaton MD Primary Care Provider Unavailab Ladi Banda MD Primary Care Provider Jayson Cadet MD Primary Care Provider + Melvin Rodas MD Unavailable Riya Vega PA-C Unavailable [phone] Garret Clements PA-C Unavailable Nighat Mcgee MD Unavailable [phone] Reason for Visit * Reason Onset Date Comments medication problems 03/05/2019 Encounter Details Date Type Department Care Team Description 03/05/2019 Telephone Pediatrics - [address] [address] Risa Eaton MD medication problems Social History Tobacco Use Types Packs/Day [...] encounter Miscellaneous Notes * Telephone Encounter - Valdemar Eason MD - 03/06/2019 9:32 AM EDT New order for javierol sent. * Telephone Encounter - Julissa Patrick - 03/05/2019 1:25 PM EDT Who is calling? Incoming fax from [facility] Name of the medication Proair respiclick inhal powder What is the specific problem or interaction? Product not on formulary If the patient is having a problem with taking the med - how long has the problem been going on? N/A documented in this encounter Plan of Treatment Not on file documented as of this encounter Visit Diagnoses Not on filedocumented in this encounter Care Teams Malt Liquors Sales Representative Relationship Specialty Start Date End Date Risa Eaton MD PCP - General 06/25/06 11/09/21 Ladi Medina MD [address] [place] [address] PCP - General Pediatrics 11/10/21 08/09/22 Jayson Cadet MD [address] [place] [address] PCP - General Internal Medicine 08/10/22 Melvin Rodas MD [address] [place] [address] Specialist Cardiovascular Disease 01/08/23 Riya Vega PA-C [address] [address] Specialist Neurosurgery 05/12/24 Garret Clements PA-C [address] [address] Specialist Neurosurgery 05/12/24 Nighat Mcgee MD [address] [address] Surgeon Neurosurgery 05/12/24 documented as of this encounter
--- OUTSIDE RECORDS SUMMARY | 2025-07-10 17:51 | XMS_ITS | Encounter Summary ---
Author Organization [employer] [facility] Prior to 06/06/2024 Address [address] [place] [address] Care Team Providers Care Management Professional Name Role Phone Jayson Cadet MD Primary Care Provider + Melvin Rodas MD Unavailable Riya Vega PA-C Unavailable Garret Clements PA-C Unavailable [phone] Nighat Mcgee MD Unavailable [phone] Reason for Visit * Reason Onset Date Comments Test 02/25/2024 Encounter Details Date Type Department Care Team Description 02/25/2024 Telephone OBGYN - [place] [address] [place] [address] Shelia Reilly CNM [address] [place] [address] Test Social History Tobacco Use Types Packs/Day Years [...] encounter Miscellaneous Notes * Telephone Encounter - Teresa Worrell R.N. - 02/25/2024 10:17 AM EDT Spoke with patient.Pt c/o nausea and lightheadedness for a few weeks. Last Depo on 12/13/23 and no menses in a few months which is WNL for her. Pt took HPT one NEG and one POS. Pt requests appt. Pt scheduled PT appt on 02/28/24 @3pm @ [facility]. Pt understands appt location. * Telephone Encounter - Mari De Dios - 02/25/2024 9:38 AM EDT Pt is currently on Depo, did 2 home prg test, first negative the second positive. Please advise documented in this encounter Plan of Treatment Not on file documented as of this encounter Visit Diagnoses Not on filedocumented in this encounter Care Teams Management Professional Relationship Specialty Start Date End Date Jayson Cadet MD [address] [place] [address] PCP - General Internal Medicine 08/10/22 Melvin Rodas MD [address] [place] [address] Specialist Cardiovascular Disease 01/08/23 Riya Vega PA-C [address] [address] Specialist Neurosurgery 05/12/24 Garret Clements PA-C [address] [address] Specialist Neurosurgery 05/12/24 Nighat Mcgee MD [address] [address] Surgeon Neurosurgery 05/12/24 documented as of this encounter
--- OUTSIDE RECORDS SUMMARY | 2025-07-10 17:51 | XMS_ITS | Encounter Summary ---
Author Organization [employer] [facility] Prior to 06/06/2024 Address [address] [place] [address] Care Team Providers Care Diesel Engine Pipe Fitter Name Role Phone Jayson Cadet MD Primary Care Provider + Melvin Rodas MD Unavailable Riya Vega PA-C Unavailable Garret Clements PA-C Unavailable [phone] Nighat Mcgee MD Unavailable [phone] Encounter Details Date Type Department Care Team Description 02/22/2023 Telephone Adult Medicine [address] [address] Jayson Cadet MD [address] [place] [phone] Social History Tobacco Use Types Packs/Day Years [...] on filedocumented in this encounter Care Teams Diesel Engine Pipe Fitter Relationship Specialty Start Date End Date Jayson Cadet MD [address] [place] [address] PCP - General Internal Medicine 08/10/22 Melvin Rodas MD [address] [place] [address] Specialist Cardiovascular Disease 01/08/23 Riya Vega PA-C [address] [address] Specialist Neurosurgery 05/12/24 Garret Clements PA-C [address] [address] Specialist Neurosurgery 05/12/24 Nighat Mcgee MD [address] [address] Surgeon Neurosurgery 05/12/24 documented as of this encounter
[2025-07-31] VITALS (7 sets, daily range): BP systolic 116–141; BP diastolic 70–96; PULSE 62–92; RESP 17–22; TEMP 36.8–37.7; O2SAT 94–98; BMI 35.0
--- NOTE | ~2025-07-31 | FL_ITS ---
EXAMINATION: XR LUMBAR PUNCTURE CLINICAL INFORMATION: G93.2 - Benign intracranial hypertension COMPARISON: None available. TECHNIQUE: Following explaining fluoroscopy-guided lumbar puncture procedure, benefits and risk, a written consent was obtained. Patient was placed prone on fluoroscopy table and optimal site was selected along the L4-5 disc level and a skin marker was placed. The marked site was cleaned and draped in usual sterile manner. 1% lidocaine was injected at puncture site. Through a small skin incision a 20-gauge spinal needle was advanced from the skin intrathecally at the L4-5 disc level. After observing CSF return following removal of stylet patient was quickly placed in left lateral decubitus view and opening CSF pressure was obtained. Subsequently CSF was collected in 4 test tubes. Postprocedure stylet was reintroduced and needle withdrawn. Complete hemostasis achieved at puncture site. Sterile Band-Aid applied postprocedure. Patient tolerated procedure extremely well. FINDINGS: On on images obtained during lumbar spine puncture the L4-L5 vertebral heights and the sacrum and SI joint appears unremarkable. The adjacent disc heights are normal. The opening CSF pressure measured 19 cm of water. Approximately 14.5 mL of clear CSF fluid was withdrawn and sent to lab. FLUOROSCOPY TIME: 41 seconds DOSE AREA PRODUCT: [id number] uGy-m2 (microgray-meter squared) FL/FL guided lumbar puncture LP IMPRESSION: Successful fluoroscopy-guided lumbar puncture performed. Elevated opening CSF pressure of 19 cm of water. The CSF was clear. Electronically signed by: Bart Leyva MD 08/03/2025 10:50 AM [facility]
[2025-07-31 10:04] LABS: UPreg QC Valid YES
[2025-07-31] MEDS: Albuterol Sulfate 90 MCG 8 GM INHALER 2 PUFF INHALE (10:27)
[2025-07-31 10:29] LABS: MANUAL DIFF FLAG NO
[2025-07-31 10:35] LABS: Hematocrit 42.8 % (37.0-47.0); Hemoglobin 14.7 g/dl (12.0-16.0); Imm Gran Abs Auto 0.03 X10*3/uL (0.00-0.03); Imm Gran Pct Auto 0.3 % (0.0-0.4); Lymphocytes Absolute Auto 2.8 X10*3/uL (1.2-4.9); Mean Corpuscular HGB Conc 34.3 g/dl (31.0-35.0); Mean Corpuscular Hemoglobin 28.9 pg (27.0-33.0); Mean Corpuscular Volume 84.1 fL (80.0-98.0); NRBC Abs Auto 0.000 X10*3/uL (0.0-0.012); NRBC Pct Auto 0.0 /100WBC (0.0-0.2); Platelet Count 360 X10*3/uL (160-400); Red Blood Count 5.09 X10*6/uL (4.20-5.50); White Blood Count 8.9 X10*3/uL (4.8-10.8)
[2025-07-31 10:53] LABS: Anion Gap 11 (12-20); Blood Urea Nitrogen 8 mg/dL (9-16); Calcium 9.7 mg/dL (8.4-10.2); Carbon Dioxide 25 mmol/L (22-29); Chloride 107 mmol/L (96-108); Creatinine Clr Calc Pharmacy 158.5; Estimated Glomerular Filt Rate > 60; Potassium 4.3 mmol/L (3.3-5.1); Sodium 139 mmol/L (135-145)
[2025-07-31 10:58] LABS: INTERNATIONAL NORM RATIO 1.1 (0.9-1.1); Prothrombin Time 13.3 SEC (11.2-13.5)
[2025-07-31 13:41] LABS: Lymphocytes CSF 50 %; Red Blood Cell CSF 3 MM*3; White Blood Cell CSF 4 MM*3
[2025-07-31 13:43] LABS: Lymphocytes CSF 100 %; Red Blood Cell CSF 5 MM*3; White Blood Cell CSF 1 MM*3
== END 2025-07-31 13:56 | disposition home or self-care (01) ==
PROVIDERS: Radiology Diagnostic Radiology; PCP Family Medicine; Visit Provider Psychiatry & Neurology Neurology
PROC: 009U3ZZ Drainage of Spinal Canal, Percutaneous Approach (ICD-10-PCS; CPT 62270; principal; 2025-07-31 11:00)
DX: G93.2 Benign intracranial hypertension (principal); G43.909 Migraine, unspecified, not intractable, without status migrainosus; G47.00 Insomnia, unspecified; F98.8 Other specified behavioral and emotional disorders with onset usually occurring in childhood and adolescence; Z79.1 Long term (current) use of non-steroidal anti-inflammatories (NSAID); Z79.899 Other long term (current) drug therapy; Z91.018 Allergy to other foods; Z91.013 Allergy to seafood; F12.90 Cannabis use, unspecified, uncomplicated
CPT/HCPCS: 36415; 62328; 80048; 81025; 82945; 84157; 85025; 85610; 87015; 87070; 87205; 89051; J2003

== ENCOUNTER → 2025-07-31 09:38 | Outpatient (BNV) | payer OTHER, SELFPAY | PROVIDERS: PCP Family Medicine; Visit Provider Radiology Diagnostic Radiology | DX: G93.2 Benign intracranial hypertension (principal) | CPT/HCPCS: 62328 ==